=== PATIENT | female | born 1945 | race Caucasian/White ===

== ENCOUNTER 2019-11-15 10:21 | Outpatient (CLI) | payer MEDICARE, OTHER, SELFPAY ==
--- NOTE | ~2019-11-15 | DEXA_ITS ---
Bone Density Report Name: Catherine Blas Age: 74 Sex: Female Ethnicity: White Date of : 1945 Indication: postmenopausal; parental hip fracture; height loss; prior fracture; hysterectomy; Referring Provider: NAOMY BOSWELL Study: Bone densitometry was performed. Exam Date: November 15, 2019 Accession number: [id number] Bone Density: Region BMD T-score Z-score Classification AP Spine (L1, L2) 0.975 0.0 2.1 Normal Femoral Neck (Left) 0.753 -0.9 1.1 Normal Total Hip (Left) 0.937 0.0 1.6 Normal Total Hip Bilateral Avg 0.931 -0.1 1.6 Normal Femoral Neck (Right) 0.697 -1.4 0.5 Osteopenia Total Hip (Right) 0.925 -0.1 1.5 Normal World Health Organization criteria for BMD impression classify patients as: Normal (T-score at or above -1.0), Osteopenia (T-score between -1.0 and -2.5), or Osteoporosis (T-score at or below -2.5). 10-year Fracture Risk(1): Major Osteoporotic Fracture 24% Hip Fracture 6.4% Reported Risk Factors: [place] (), Neck BMD=0.697, BMI=24.9, previous fracture, parental fracture (1) FRAX(R) Version 3.08. Fracture probability calculated for an untreated patient. Fracture probability may be lower if the patient has received treatment. Previous Exams: Region Exam Age BMD T-score BMD Change BMD Change Date g/cm2 vs Baseline vs Previous AP Spine(L1, L2) 11/15/2019 74 0.975 0.0 -0.073(-6.9%)# -0.050(-4.8%)* 09/29/2017 72 1.025 0.4 -0.023(-2.2%)# -0.071(-6.5%)# 10/09/2009 64 1.096 1.1 0.048(4.6%)* 0.048(4.6%)* 09/29/2005 60 1.048 0.6 Total Hip(Left) 11/15/2019 74 0.937 0.0 -0.032(-3.3%)# -0.011(-1.2%) 09/29/2017 72 0.948 0.1 -0.021(-2.1%)# -0.056(-5.5%)# 10/09/2009 64 1.004 0.5 0.035(3.6%)* 0.035(3.6%)* 09/29/2005 60 0.969 0.2 Total Hip(Right) 11/15/2019 74 0.925 -0.1 -0.026(-2.8%)# 0.000(0.0%) 09/29/2017 72 0.925 -0.1 -0.026(-2.7%)# -0.027(-2.8%)# 10/09/2009 64 0.953 0.1 0.001(0.1%) 0.001(0.1%) 09/29/2005 60 0.951 0.1 *Denotes significance at 95% confidence level, LSC for AP Spine = 0.022 g/cm2, LSC for Total Hip = 0.027 g/cm2 Clinical Information Provided by Patient: Has had a low trauma fracture Parent has had a hip fracture Has used the following medications: HRT (i.e. estrogen/hormone therapy), Vitamin D, Calcium Has the following medical conditions: Hysterectomy Patient maximum height was 66.5 Menopause Age: 52 Drinks caffeinated beverages Onset of menses at age 16
== END 2019-11-15 10:22 | disposition home or self-care (01) ==
LOC: ANHIMG 10:26
PROVIDERS: PCP Family Medicine; Visit Provider Family Medicine
DX: Z78.0 Asymptomatic menopausal state (principal); M85.80 Other specified disorders of bone density and structure, unspecified site
CPT/HCPCS: 77080

== ENCOUNTER 2021-06-23 13:45 | Outpatient (CLI) | payer MEDICARE, SELFPAY ==
--- NOTE | ~2021-06-23 | US_ITS ---
EXAMINATION: US thyroid DATE: 06/23/2021 14:15 INDICATION: Nontoxic single thyroid nodule. TECHNIQUE: Multiple ultrasound images of the thyroid were obtained. COMPARISON: None. FINDINGS: The right thyroid lobe measures 4.5 x 2.1 x 1.9 cm. The left thyroid lobe measures 4.3 x 1.4 x 1.2 c m. The thyroid demonstrates diffusely heterogeneous echogenicity. No discrete nodule. Vascularity is increased. IMPRESSION: 1. Heterogeneous, hypervascular thyroid, consistent with chronic lymphocytic ([place]) thyroiditis. Reviewed, dictated and finalized at location A. 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 Heterogeneous, hypervascular thyroid, consistent with chronic lymphocytic ([place]) thyroiditis.
== END 2021-06-23 13:46 | disposition home or self-care (01) ==
LOC: ANHIMG 13:50
PROVIDERS: PCP Family Medicine; Visit Provider Physician Assistant Medical
DX: E04.1 Nontoxic single thyroid nodule (principal)
CPT/HCPCS: 76536

== ENCOUNTER 2022-02-05 14:08 | Outpatient (CLI) | payer MEDICARE, SELFPAY ==
--- NOTE | ~2022-02-05 | MM_ITS ---
EXAMINATION: MM screening meghan BI w gaston HISTORY: Screening mammogram TECHNIQUE: Craniocaudal and mediolateral oblique 3-D tomosynthesis images were obtained and synthetic 2-D images were generated. CAD analysis was submitted and interpreted. COMPARISON: 09/29/2017, 01/07/2016, 12/27/2013 bilateral screening mammogram examinations BREAST PARENCHYMAL COMPOSITION: There are scattered areas of fibroglandular density. FINDINGS: Right breast: There is chronic architectural distortion anteriorly in the outer mid right b reast. There is increased density in the anterior medial and anterior lateral right breast since prio r examinations. Diagnostic right mammogram and right breast ultrasound examination are recommended. Left breast: There is no evidence of suspicious mass, calcification, or architectural distortion to s uggest malignancy in the left breast. There has been no suspicious interval change. IMPRESSION: 1. New increased density and anterior medial and anterior lateral right breast 2. Diagnostic right mammogram and right breast ultrasound examination are recommended. BI-RADS Category 0: Incomplete: Needs additional imaging evaluation. Reviewed, dictated and finalized at location A. IMPRESSION: 1. New increased density and anterior medial and anterior lateral right breast 2. Diagnostic right mammogram and right breast ultrasound examination are recom mended. BI-RADS Category 0: Incomplete: Needs additional imaging evaluation.
== END 2022-02-05 14:09 | disposition home or self-care (01) ==
PROVIDERS: PCP Family Medicine; Visit Provider Family Medicine
DX: Z12.31 Encounter for screening mammogram for malignant neoplasm of breast (principal); R92.8 Other abnormal and inconclusive findings on diagnostic imaging of breast
CPT/HCPCS: 77063; 77067

== ENCOUNTER 2022-02-17 13:04 | Outpatient (CLI) | payer MEDICARE, SELFPAY ==
--- NOTE | ~2022-02-17 | MMUS_ITS ---
EXAMINATION: MM diagnostic meghan RT w gaston, US breast RT limited HISTORY: Follow-up right breast asymmetry TECHNIQUE: Additional 3-D tomosynthesis images of the right breast were performed and synthetic 2-D i mages were generated. CAD analysis was submitted and interpreted. High resolution Limited right breas t ultrasound was performed. COMPARISON: Comparison to multiple prior studies sequentially, with oldest reviewed study dated 08/2012. BREAST PARENCHYMAL COMPOSITION: Breast composed of scattered areas of fibroglandular density FINDINGS: MAMMOGRAPHIC FINDINGS: There is chronic architectural distortion lateral aspect of the right breast on CC view. There are sm all radiolucent masses in the lower inner quadrant of the right breast, largest measuringr 6 mm, like ly benign. There are benign right breast calcifications. ULTRASOUND: Limited right breast ultrasound: Near the nipple there is a minimally complicated cyst measuring 8 x 4 x 4 mm. At 10:00, 5 cm from the nipple there is a 5 x 5 x 4 mm cyst. No suspicious masses to sugges t malignancy. IMPRESSION: 1. Probable benign findings of the right breast. 2. Recommend 6 month follow-up diagnostic right mammogram and ultrasound BI-RADS category 3, probably benign findings. Reviewed, dictated and finalized at location A. IMPRESSION: 1. Probable benign findings of the right breast. 2. Recommend 6 month follow-up diagnostic right mammogram and ultrasound BI-RADS category 3, probably benign findings.
== END 2022-02-17 13:05 | disposition home or self-care (01) ==
PROVIDERS: Visit Provider Physician Assistant
DX: R92.8 Other abnormal and inconclusive findings on diagnostic imaging of breast (principal)
CPT/HCPCS: 76642; 77061; 77065; G0279

== ENCOUNTER → 2022-02-19 13:55 | Outpatient (CLI) | payer MEDICARE, SELFPAY ==
--- NOTE | ~2022-02-19 | DEXA_ITS ---
Bone Density Report Name: MADISON HAMMER Age: 76 Sex: Female Ethnicity: White Date of : 1945 Indication: postmenopausal; screening for osteoporosis; parental hip fracture; height loss; prior fracture; hysterectomy; Referring Provider: NAOMY BOSWELL Study: Bone densitometry was performed. Exam Date: February 19, 2022 Accession number: [id number] Bone Density: Region BMD T-score Z-score Classification AP Spine (L1, L2) 1.012 0.3 2.5 Normal Femoral Neck (Left) 0.716 -1.2 0.8 Osteopenia Total Hip (Left) 0.909 -0.3 1.5 Normal Femoral Neck (Right) 0.666 -1.6 0.4 Osteopenia Total Hip (Right) 0.905 -0.3 1.4 Normal Total Hip Mean 0.907 -0.3 1.5 Normal World Health Organization criteria for BMD impression classify patients as: Normal (T-score at or above -1.0), Osteopenia (T-score between -1.0 and -2.5), or Osteoporosis (T-score at or below -2.5). 10-year Fracture Risk: FRAX not reported because: Treated for osteoporosis Clinical Information Provided by Patient: Has had a low trauma fracture Parent has had a hip fracture Is being treated for osteoporosis Has used the following medications: HRT (i.e. estrogen/hormone therapy), Vitamin D, Calcium Has the following medical conditions: Hysterectomy Patient maximum height was 66.5 Menopause Age: 54 Drinks caffeinated beverages Onset of menses at age 16 Number of children 2 Impression: The patient has low bone mass, based on the Right Femoral Neck T-score. The patient has risk factors, including: parental hip fracture, previous fracture. Discussion: It is important to ask patients whether they are taking their medications and to encourage continued and appropriate compliance with their osteoporosis therapies to reduce fracture risk. It is also important to review their risk factors and encourage appropriate calcium and vitamin D intakes, exercise, fall prevention and other lifestyle measures. Follow-Up: Consider a repeat BMD and Vertebral Fracture Assessment (VFA) exam in 2 years or sooner if medically necessary, to reassess this patient's status. Reported by: JENNA on 02/19/2022 2:20:00 PM. Reviewed, dictated and finalized at location AWhit GARCIA
== END ==
PROVIDERS: PCP Family Medicine; Visit Provider Family Medicine
DX: Z78.0 Asymptomatic menopausal state (principal); M85.851 Other specified disorders of bone density and structure, right thigh; M85.852 Other specified disorders of bone density and structure, left thigh
CPT/HCPCS: 77080

== ENCOUNTER 2022-08-20 13:24 | Outpatient (CLI) | payer MEDICARE, SELFPAY ==
--- NOTE | ~2022-08-20 | MMUS_ITS ---
EXAMINATION: MM diagnostic meghan RT w gaston, US breast RT complete HISTORY: Six-month follow-up of probable right breast benign findings TECHNIQUE: Full field ML and spot ML, MLO and CC 3-D tomosynthesis images of the right breast were pe rformed and synthetic 2-D images were generated. CAD analysis was submitted and interpreted. High res olution complete right breast ultrasound examination including all 4 quadrants and subareolar area wa s performed. COMPARISON: 02/17/2022 diagnostic right mammogram and limited right breast ultrasound 02/05/2022 bilateral screening mammogram 09/29/2017 bilateral screening mammogram BREAST PARENCHYMAL COMPOSITION: There are scattered areas of fibroglandular density. FINDINGS: MAMMOGRAPHIC FINDINGS: There is stable asymmetry and architectural distortion of the right breast since 02/05/2022. History o f prior open right breast biopsy in 2002. Scattered punctate benign right microcalcifications. No interval suspicious mass or new architectural distortion, Nadreina constipation, skin thickening or retraction since 02/05/2022 detected. ULTRASOUND: Right breast 3:00 near nipple: 3.4 x 6.7 x 5 mm sonolucency without internal vascularity or posterior shadowing, with some posterior enhancement, likely benign cystic. Right breast posterior to the nipple: Approximately 5.4 x 8.6 x 6.7 mm hypoechoic area without international affairs vice president al vascularity or posterior features considering its retroareolar position 10:00 5 cm from nipple: 4 x 6.5 mm sonolucency with through transmission posterior enhancement consis tent with cyst IMPRESSION: 1. Probable benign findings 2. Another six-month diagnostic right mammogram and right breast ultrasound follow-up are recommended . BI-RADS category 3, probably benign findings. Reviewed, dictated and finalized at location A. IMPRESSION: 1. Probable benign findings 2. Another six-month diagnostic right mammogram and right breast ultrasound fol low-up are recommended. BI-RADS category 3, probably benign findings.
== END 2022-08-20 13:25 | disposition home or self-care (01) ==
PROVIDERS: PCP Family Medicine; Visit Provider Physician Assistant
DX: R92.8 Other abnormal and inconclusive findings on diagnostic imaging of breast (principal)
CPT/HCPCS: 76641; 77061; 77065; G0279

== ENCOUNTER 2023-03-02 12:16 | Outpatient (CLI) | payer MEDICARE, SELFPAY ==
--- NOTE | ~2023-03-02 | MMUS_ITS ---
EXAMINATION: MM diagnostic meghan BI w gaston, US breast BI complete HISTORY: Six-month follow-up of probably benign findings reported on August 20, 2022 diagnostic right mammogram and complete right breast ultrasound examination TECHNIQUE: Bilateral ML, MLO and CC full field and right spot ML and CC 3-D tomosynthesis images of w ere performed and synthetic 2-D images were generated. CAD analysis was submitted and interpreted. Hi gh resolution complete bilateral breast ultrasound examination including all 4 quadrants and subareol ar areas was performed. COMPARISON: August 20, 2022 diagnostic right mammogram and limited right breast ultrasound 02/17/2022 diagnostic right mammogram and limited right breast ultrasound 02/05/2022 bilateral screening mammogram BREAST PARENCHYMAL COMPOSITION: The breasts are heterogeneously dense, which may obscure small masses . FINDINGS: MAMMOGRAPHIC FINDINGS: Again noted is architectural distortion in the outer right breast; history of prior open right breast biopsy in 2039. There is somewhat nodular appearing heterogeneously dense fibroglandular stroma of both breasts, whic h may obscure small masses. Bilateral complete breast ultrasound examination was performed. No malignant calcification, skin thickening or retraction of either breast is detected. ULTRASOUND: Multiple scattered bilateral cysts and fluid-filled ducts are noted. No suspicious solid mass lesion or shadowing of either breast is detected. IMPRESSION: 1. No mammographic evidence of malignancy 2. Routine mammographic screening is recommended BI-RADS Category 2: Benign finding(s). Reviewed, dictated and finalized at location C. IMPRESSION: 1. No mammographic evidence of malignancy 2. Routine mammographic screening is recommended BI-RADS Category 2: Benign finding(s).
== END 2023-03-02 12:17 | disposition home or self-care (01) ==
PROVIDERS: PCP Family Medicine; Visit Provider Family Medicine
DX: R92.8 Other abnormal and inconclusive findings on diagnostic imaging of breast (principal); N60.01 Solitary cyst of right breast
CPT/HCPCS: 76641; 77062; 77066; G0279

== ENCOUNTER 2024-03-06 09:56 | Outpatient (CLI) | payer MEDICARE, SELFPAY ==
--- NOTE | ~2024-03-06 | MM_ITS ---
EXAMINATION: MM screening meghan BI w gaston HISTORY: Screening mammogram, family history of breast cancer in her daughter. TECHNIQUE: Craniocaudal and mediolateral oblique 3-D tomosynthesis images were obtained and synthetic 2-D images were generated. CAD analysis was submitted and interpreted. COMPARISON: 03/02/2023, 08/20/2022, 02/05/2022 BREAST PARENCHYMAL COMPOSITION:Not Dense. There are scattered areas of fibroglandular density. FINDINGS: Small bilateral low-density masses are similar to prior exam, most compatible with multiple cysts. No suspicious mass, calcification, or architectural distortion are identified in either breas t to suggest malignancy. There has been no suspicious interval change. IMPRESSION: No mammographic evidence of malignancy. Recommend routine screening mammography in one year. BI-RADS Category 2: Benign finding(s). Reviewed, dictated and finalized at [facility].
== END 2024-03-06 09:57 | disposition home or self-care (01) ==
LOC: ANHIMG 10:00
PROVIDERS: PCP Family Medicine; Visit Provider Family Medicine
DX: Z12.31 Encounter for screening mammogram for malignant neoplasm of breast (principal)
CPT/HCPCS: 77063; 77067

== ENCOUNTER 2024-05-16 09:28 | Emergency (ER) | payer MEDICARE, SELFPAY ==
[2024-05-16 09:37] VITALS: BP 149/86; PULSE 77; RESP 16; TEMP 36.8; O2SAT 99
--- NOTE | 2024-05-16 09:44 | ED.EYEPROB ---
HPI - Eye Problem General Chief complaint: Eye Problems Stated complaint: L EYE STY Time Seen by Provider: 05/16/24 10:20 Source: patient, RN notes reviewed and old records reviewed Mode of arrival: ambulatory Limitations: no limitations History of Present Illness HPI Narrative: 78-year-old female presents to the [facility] with a stye to the left upper eyelid for the last 9 days. Has been using [id number] eye drops, warm compresses. Onset (ago): day(s) (9) Related Data Home Medications ?Medication ?Instructions ?Recorded ?Confirmed ?Last Taken ?Type calcium 600 mg-D3 800 unit-mag11 1 tablet PO BID 04/27/19 03/28/24 Unknown History 50 ns-hxzg-egscaz-leyla-s.borat tablet (Caltrate 600-D Plus Minerals) cetirizine 10 mg tablet 5 mg PO DAILY 04/27/19 03/28/24 Unknown History cholecalciferol (vitamin D3) 25 1,000 unit PO DAILY 04/27/19 03/28/24 Unknown History mcg (1,000 unit) capsule fluticasone propionate 50 2 spray intranasal DAILY 04/27/19 03/28/24 Unknown History mcg/actuation nasal spray,suspension latanoprost 0.005 % eye drops 1 drp EACH EYE DAILY 09/26/21 03/28/24 Unknown History polyethylene glycol 3350 17 17 g PO DAILY 09/16/23 03/28/24 Unknown History gram/dose oral powder (Miralax) mecobalamin (vitamin B12) 1,000 1,000 mcg PO DAILY 09/22/23 03/28/24 Unknown History mcg chewable tablet (B12 Active) multivitamin with minerals-folic 1 tablet PO DAILY 09/22/23 03/28/24 Unknown History acid 120 mcg chewable tablet (Centrum Adult 50 Plus Fresh-Fruity) nystatin 100,000 unit/gram topical 1 applic topical DAILY 09/22/23 03/28/24 Unknown History cream omega-3 fatty acids 1,250 mg 1,250 mg PO BID 09/22/23 03/28/24 Unknown History capsule Allergies Allergy/AdvReac Type Severity Reaction Status Date / Time irbesartan Allergy Unknown Unknown Verified 05/16/24 09:36 lisinopril Allergy Unknown Unknown Verified 05/16/24 09:36 lovastatin Allergy Unknown Unknown Verified 05/16/24 09:36 Review of Systems Review of Systems: All systems reviewed & are unremarkable except as noted in HPI and below Constitutional: Constitutional: Reports no additional constitutional complaints Eyes: Eyes: Reports as per HPI ENT: Reports system reviewed and no additional complaints, except as documented Cardiovascular: Cardiovascular: Reports no additional cardiovascular complaints, Denies chest pain and Denies dyspnea Respiratory: Respiratory: Reports no additional respiratory complaints, Denies chest congestion, Denies cough and Denies dyspnea Musculoskeletal: Musculoskeletal: Reports no additional musculoskeletal complaints Integumentary/Breasts: Skin/Breast: Reports system reviewed and no additional complaints, except as docu PMFSH Past Medical History Medical History Hearing aid worn Osteopenia after menopause Hormone replacement therapy (HRT) Migraine Family History Family History Sibling Family history of thyroid disease Hypertension Father Hypertension Family history of cardiovascular disease Mother Family history of Parkinson's disease Family history of dementia Other Diabetes mellitus Family history of anemia Social History Social History Social History: Caffeine- coffee Smoking status: Never smoker Second hand tobacco smoke exposure: Yes Alcohol intake: current Alcohol use details: occasionally Substance use: never Substance use type: does not use Do You Feel Safe in your Home?: Yes Lack of Transportation: No Lack of Food: Never True Current Housing: I Have Housing Concerned About Future Housing: No Difficulty Paying Gas/Electric Bills: No Difficulty Paying for Meds: No Currently Unemployed: No Education: Bachelor's Degree Difficulty w/ Childcare or Family Care: No Comments At the time of my signature, I reviewed and agree with the nursing past medical, surgical, social, and family history. There is no relevant family history pertinent to the patient complaint. Exam Const: General: cooperative, healthy appearing, comfortable, no acute distress, well developed, alert and well nourished Nutritional Appearance: well nourished Orientation/consciousness: patient oriented x3 Limitations: no limitations HENMT: Head: normal to inspection Ears: hearing grossly normal bilaterally, external ears normal, TM's normal bilaterally, EAC's normal, mastoids normal and no periauricular adenopathy Mouth: Yes Normal oral and palatal mucosa present, Yes lip normal, Yes tongue normal and Yes moist mucous membranes Throat: posterior oropharynx normal, uvula midline and no uvular edema Eyes: General: appearance normal, both eyes and all related structures Visual Daley: normal visual daley by confrontation Alignment and Position: alignment normal Eyelids: eyelid abnormality left upper eyelid inflamed cyst external lid Conjunctivae: conjunctivae normal Sclera: sclerae normal Neck: Neck: normal visual inspection, full ROM, no lymphadenopathy and no meningeal signs Chest: Chest palpation & inspection: normal inspection of the chest Resp: Effort & Inspection: normal respiratory effort and able to speak in complete sentences Auscultation: clear to auscultation bilaterally, no crackles, no rales, no rhonchi and no wheezes Cardio: Rate: regular rate Skin: General skin exam: normal color and no rashes or lesions noted Neuro: General: patient oriented x3, gait normal, moves all extremities and no meningeal signs Cognition (Neuro): normal cognition Speech: normal speech Gait exam (Neuro): Normal gait present Extrem: General: normal to inspection, full ROM, capillary refill normal and normal gait Psych: Appearance: grossly normal and well kempt Mental Status: mental status grossly normal Speech and movement: Normal speech and movement present and Clear speech present Affect: normal affect Attitude: cooperative Course Course Level of Care: Express Care Visit Vital Signs Vital signs: Vital Signs Temperature 98.2 F 05/16/24 09:37 Pulse Rate 77 05/16/24 09:37 Respiratory Rate 16 05/16/24 09:37 Blood Pressure 149/86 H 05/16/24 09:37 Pulse Oximetry 99 05/16/24 09:37 Temperature 98.2 F 05/16/24 09:37 Pulse Rate 77 05/16/24 09:37 Respiratory Rate 16 05/16/24 09:37 Blood Pressure 149/86 H 05/16/24 09:37 Pulse Oximetry 99 05/16/24 09:37 Reviewed MDM - Eye Problem MDM Narrative Medical decision making narrative: Patient sitting comfortably in exam room. Nontoxic, vitals stable. Patient in no acute distress. Patient presents with [place] large stye to the left upper eyelid. No surrounding erythema, no surrounding swelling discussed woka-wvl-vpekfyq treatments, will give erythromycin, stressed the importance of following up with eye doctor which she verbalized understanding. Discharge instructions reviewed with patient, as well as provided in writing per nursing staff. The instructions also include specific and strict return/GO TO THE ER as well as f/u information. All questions have been answered, and the patient deny any further questions with discharge and discharge plan. Some parts of this dictation were generated by voice recognition software and may contain typographical and/or grammatical inaccuracies. Differential Diagnosis Differential diagnosis: Likely conjunctivitis, periorbital cellulitis and other (Stye) Critical Care Time Critical Care Time Critical Care Time: No Discharge Plan Discharge Clinical Impression: Hordeolum of left upper eyelid Qualifiers: Hordeolum type: externum Qualified Code(s): H00.014 - Hordeolum externum left upper eyelid Patient Disposition: Home, Self-Care Condition: Stable Instructions: Antibiotic Form, Marylou (ED) Additional Instructions: Follow-up with your eye doctor, call today for an appointment. Apply warm compresses every 3-4 hours for 10 minutes. Use the erythromycin ointment 3 times a day do not wear makeup follow-up with your primary care provider. Today your blood pressure was 149/86 for new or worsening symptoms go directly to the emergency room Patient Language: Vietnamese Prescriptions: New erythromycin 5 mg/gram (0.5 %) ointment 0.5 inch LEFT EYE TID Qty: 3.5 0RF No Action latanoprost 0.005 % drops 1 drp EACH EYE DAILY multivit with min-folic acid [Centrum Adult 50 Fresh-Fruity] 120 mcg tablet,chewable 1 tablet PO DAILY mecobalamin (vitamin B12) [B12 Active] 1,000 mcg tablet,chewable 1,000 mcg PO DAILY omega-3 fatty acids 1,250 mg capsule 1,250 mg PO BID nystatin 100,000 unit/gram cream 1 applic topical DAILY fluticasone propionate 50 mcg/actuation spray,suspension 2 spray NASAL DAILY cetirizine 10 mg tablet 5 mg PO DAILY cholecalciferol (vitamin D3) 25 mcg (1,000 unit) capsule 1,000 unit PO DAILY Caltrate 600-D Plus Minerals 600 mg calcium- 800 unit-50 mg tablet 1 tablet PO BID Seed Probiotic 1 tablet BYMOUTH DAILY Qty: 30 0RF polyethylene glycol 3350 [Miralax] 17 gram/dose powder 17 g PO DAILY simvastatin 20 mg tablet See Rx Instructions .ROUTE .COMPLEX Qty: 90 1RF Dose Instruction: TAKE 1 TABLET BY MOUTH DAILY Rx Instructions: TAKE 1 TABLET BY MOUTH DAILY sertraline [Zoloft] 50 mg tablet 50 mg PO DAILY Qty: 90 1RF meloxicam 15 mg tablet 15 mg PO DAILY Qty: 90 0RF estradiol [Estrace] 0.5 mg tablet 0.5 mg PO DAILY Qty: 90 3RF Follow-up/Referrals: Luciano Enriquez MD [Primary Care Provider] - 1 Week ([facility] care follow up blood pressure check) Time of Disposition: 10:34
== END 2024-05-16 10:38 | disposition home or self-care (01) ==
PROVIDERS: Emergency Provider Nurse Practitioner; PCP Family Medicine
DX: H00.014 Hordeolum externum left upper eyelid (principal); M85.80 Other specified disorders of bone density and structure, unspecified site
CPT/HCPCS: 99213; G0463

== ENCOUNTER 2024-07-03 07:04 | Day surgery (SDC) | payer MEDICARE, SELFPAY ==
[2024-03-30 08:53] VITALS: BMI 27.3
--- NOTE | 2024-07-03 06:55 | P.PNAN_ITS ---
Anes - Initial Pre Proc Eval Procedure: Operation Date: 07/03/24 09:00 Proposed Procedures p Diagnostic Colonoscopy - Manan Braden MD Date/Time: 07/03/24 06:55 Surgeon: Manan Braden MD Pre Op Diagnosis: Family History of Polyps Patient Data Age: 78 Gender: F Height: 1.65 m Weight: 73 kg Allergies Allergy/AdvReac Type Severity Reaction Status Date / Time irbesartan Allergy Unknown Unknown Verified 07/03/24 07:49 lisinopril AdvReac Unknown Cough Verified 07/03/24 07:49 lovastatin AdvReac Unknown Muscle Pain Verified 07/03/24 07:49 Home Medications ?Medication ?Instructions ?Recorded ?Confirmed ?Type calcium 600 mg-D3 800 unit-mag11 1 tablet PO HS 04/27/19 07/03/24 History 50 qq-jzqh-ijeign-leyla-s.borat tablet (Caltrate 600-D Plus Minerals) cetirizine 10 mg tablet 5 mg PO DAILY 04/27/19 07/03/24 History cholecalciferol (vitamin D3) 25 1,000 unit PO DAILY 04/27/19 07/03/24 History mcg (1,000 unit) capsule fluticasone propionate 50 2 spray intranasal DAILY 04/27/19 07/03/24 History mcg/actuation nasal spray,suspension latanoprost 0.005 % eye drops 1 drp EACH EYE DAILY 09/26/21 07/03/24 History Seed Probiotic 1 tablet BYMOUTH DAILY #30 tabs 03/23/23 07/03/24 Rx polyethylene glycol 3350 17 17 g PO DAILY 09/16/23 07/03/24 History gram/dose oral powder (Miralax) mecobalamin (vitamin B12) 1,000 1,000 mcg PO DAILY 09/22/23 07/03/24 History mcg chewable tablet (B12 Active) multivitamin with minerals-folic 1 tablet PO DAILY 09/22/23 07/03/24 History acid 120 mcg chewable tablet (Centrum Adult 50 Plus Fresh-Fruity) omega-3 fatty acids 1,250 mg 1,250 mg PO DAILY 09/22/23 06/13/24 History capsule simvastatin 20 mg tablet See Rx Instructions .Route 01/24/24 07/03/24 Rx .COMPLEX #90 tabs sertraline 50 mg tablet (Zoloft) 50 mg PO DAILY #90 tabs 03/23/24 07/03/24 Rx meloxicam 15 mg tablet 15 mg PO DAILY #90 tabs 04/21/24 07/03/24 Rx estradiol 0.5 mg tablet (Estrace) 0.5 mg PO DAILY #90 tabs 05/16/24 07/03/24 Rx apple cider vinegar 500 mg tablet 500 mg PO BID 06/13/24 07/03/24 History magnesium glycinate 100 mg (as 480 mg PO DAILY 06/13/24 07/03/24 History glycinate) tablet (Mag Glycinate) Patient hx anesthesia problems: none Family hx anesthesia problems: none Results Review: All pre-operative results and documents have been reviewed as part of the pre- operative evaluation. [facility] Past Medical History Medical History (Updated 07/03/24 @ 06:55 by Shahzad Guzman DO) Essential (primary) hypertension Pure hypercholesterolemia, unspecified Hearing aid worn Osteopenia after menopause Hormone replacement therapy (HRT) Migraine Family History Family History Sibling Family history of thyroid disease Hypertension Father Hypertension Family history of cardiovascular disease Mother Family history of Parkinson's disease Family history of dementia Other Diabetes mellitus Family history of anemia Social History Social History Social History: Caffeine- coffee Smoking status: Never smoker Second hand tobacco smoke exposure: Yes Alcohol intake: current Alcohol use details: rarely/monthly Substance use: never Substance use type: does not use Do You Feel Safe in your Home?: Yes Lack of Transportation: No Lack of Food: Never True Current Housing: I Have Housing Concerned About Future Housing: No Difficulty Paying Gas/Electric Bills: No Difficulty Paying for Meds: No Currently Unemployed: No Education: Bachelor's Degree Difficulty w/ Childcare or Family Care: No Living arrangements: with family Spiritual care concerns: No Anes - Eval Final PreProcedure Day of Procedure 07/03/24 06:55 Patient weight: overweight Heart: regular rate and rhythm Lungs: clear to auscultation Airway: Mallampati scale class II Neurological: alert and oriented Last oral intake: >/= 8 hours ASA classification: II Emergent: no Anesthetic plan: proceed Anesthesia type and monitoring: general GIVS and standard monitoring Results Review: All pre-operative results and documents have been reviewed as part of the pre- operative evaluation. Informed Consent: The patient's anesthetic plan and its attendant risks and benefits were discussed with the patient/family/POA. Questions were solicited and answers provided to the satisfaction of the patient/family/POA.
--- OUTSIDE RECORDS SUMMARY | 2024-07-03 07:30 | XMS_ITS | Encounter Summary ---
Author Organization [employer] Address 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 [employer] Gender Identity Not on file Sexual Orientation Not on file documented as of this encounter Plan of Treatment Not on file documented as of this encounter Procedures Procedure Name Priority Date/Time Associated Diagnosis Comments XR ANKLE 2 VW RIGHT Stat 12/31/2008 1 0:20 AM CDT XR FLUORO LESS THAN 1 HOUR Routine 12/31/2008 10:05 AM CDT TYPE AND SCREEN Routine 12/31/2008 7:24 AM CDT CBC WITH DIFFERENTIAL Stat 12/30/2008 9:45 PM CDT PROTIME-INR Stat 12/30/2008 9:45 PM CDT BASIC METABOLIC PANEL Stat 12/30/2008 9:45 PM CDT XR ANKLE 3+ VW RIGHT Stat 12/30/2008 7:40 PM CDT XR CHEST PA OR AP 1 VW Routine 6:50 PM CDT PT AND APTT Stat 12/30/2008 6:47 PM CDT CBC WITH DIFFERENTIAL Stat 12/30/2008 6:47 PM CDT COMPREHENSIVE METABOLIC PANEL Stat 12/30/2008 6:[address] ANKLE WO CONTRAST RIGHT Stat 12/30/2008 6:46 PM CDT documented in this encounter Results * XR ANKLE 2 VW RIGHT (12/31/2008 10:20 AM CDT) Anatomical Region Laterality Modality Ankle / Foot Other 12/31/2008 10:2 0 AM CDT Narrative 12/31/2008 2:44 PM CDT [facility] [address], [place] [address] Admit Date: 12/30/2008 CATHERINE HAMMER Sex: F Admit Prov: EZEKIEL STOVER Date: 1945 Primary Care Prov: NAOMY ENRIQUEZ CMRN: [id number] Room: [address] [place] [address] SSN: [id number] IMAGING SERVICES Ordering Prov: N/A Accession Number: [id number] Interpretation RIGHT ANKLE AP AND LATERAL, 12/31/08 AT 1020 HOURS INDICATION: Postoperative, ankle fracture. FINDINGS: Since 12/30/2008, a new traction pin has been placed through the calcaneus without gross acute complication. Fractures of the distal tibia and fibula have not significantly changed. An overlying splint obscures detail. IMPRESSION: New calcaneal traction pin placement without evidence of gross complication. . Dictated by: GERARDO NAGY 12/31/2008 11:05 Electronically signed by: GERARDO NAGY 12/31/2008 14:43 Transcribed: 12/31/2008 13:35 Procedure Note Gerardo Nagy MD - 12/31/2008 [facility] [address] [place], [place] [address] Admit Date: 12/30/2008 CATHERINE HAMMER Sex: F Admit Prov: EZEKIEL STOVER Date: 1945 Primary Care Prov: NAOMY ENRIQUEZ CMRN: [id number] Room: [address] [place] [address] SSN: [id number] IMAGING SERVICES Ordering Prov: N/A Interpretation RIGHT ANKLE AP AND LATERAL, 12/31/08 AT 1020 HOURS INDICATION: Postoperative, ankle fracture. FINDINGS: Since 12/30/2008, a new traction pin has been placed throughthe calcaneus without gross acute complication. Fractures of the distaltibia and fibula have not significantly changed. An overlying splintobscures detail. IMPRESSION: New calcaneal traction pin placement without evidence of gross complication. . Dictated by: GERARDO NAGY 12/31/2008 11:05 Electronically signed by: GERARDO NAGY 12/31/2008 14:43 Transcribed: 12/31/2008 13:35 us Raquel Dunn MD DIAGNOSTIC IMAGING ORDERABLES Final Result * XR FLUORO LESS THAN 1 HOUR (12/31/2008 10:05 AM CDT) Anatomical Region Laterality Modality Other 12/31/2008 10:0 5 AM CDT Narrative 01/05/2009 9:58 PM CDT [facility] [address] [place], [place] [address] Admit Date: 12/30/2008 CATHERINE AHMMER Sex: F Admit Prov: EZEKIEL STOVER Date: 1945 Primary Care Prov: NAOMY ENIRQUEZ CMRN: [id number] Room: [address] [place] [address] SSN: [id number] IMAGING SERVICES Ordering Prov: EZEKIEL STOVER Accession Number: [id number] Interpretation Fluoroscopic guidance was used by the surgeon to assist with performance of this intra-operative procedure. Please refer to surgeon s operative report for specific details. Dictated by: RADIOLOGY, DEPARTMENT O Electronically signed by: RADIOLOGY, DEPARTMENT 01/05/2009 20:44 Transcribed: 01/05/2009 19:21 AMK Procedure Note Radiology, Radiologist - 01/05/2009 [facility] [address] [place], [place] [address] Admit Date: 12/30/2008 CATHERINE HAMMER Sex: F Admit Prov: JOLANTAEZEKIEL Tasha Date: 1945 Primary Care Prov: NAOMY ENRIQUEZ CMRN: [id number] Room: [address] [place] [address] SSN: [id number] IMAGING SERVICES Ordering Prov: JOLANTA EZEKIEL Cordova Interpretation Fluoroscopic guidance was used by the surgeon to assist withperformance of this intra-operative procedure. Please refer to surgeon s operativereport for specific details. Dictated by: RADIOLOGY, DEPARTMENT O Electronically signed by: RADIOLOGY, DEPARTMENT 01/05/2009 20:44 Transcribed: 01/05/2009 19:21 AMK Ezekiel Stover MD DIAGNOSTIC IMAGING ORDERABLES Fi nal Result * TYPE AND SCREEN (12/31/2008 7:24 AM CDT) Pathologist [facility] HISTORY CHECK No Historical ABO/Rh [facility] ABO/RH TYPE O Positive [facility] SPECIMEN LIFE 3 days from drawdate [facility] ANTIBODY SCREEN Negative [facility] Blood specimen (specimen) 12/31/2008 7:24 AM CDT Ezekiel Stover MD BLOOD BANK ORDERABLES Edited INTERFACE SYSTEM Refer to clinic/hospital department [facility] CLIA# [id number] [address] [place] [address] * (ABNORMAL) CBC WITH DIFFERENTIAL (12/30/2008 9:45 PM CDT) MCV 90.1 82.0 - 99.0 fL [facility] PLATELETS 279 140 - 350 K/uL [facility] HEMOGLOBIN 14.4 11.8 - 14.8 g/dL [facility] RDW 12.8 11.5 - 14.5 % [facility] WBC 13.3(H) 4.0 - 9.8 K/uL [facility] MCH 31.0 27.2 - 32.6 pg [facility] MPV 9.9 9.3 - 12.4 fL [facility] HEMATOCRIT 41.9 35.5 - 44.0 % [facility] RDW-STDEV 41.6 37.1 - 48.7 fL [facility] RBC 4.65 3.90 - 4.90 M/uL [facility] MCHC 34.4 31.5 - 35.5 % [facility] EOSINOPHILS 0 0 - 7 % [facility] EOSINOPHIL ABSOLUTE 0.03 0.00 - 0.70 K/uL [facility] LYMPHOCYTES 12(L) 16 - 45 % [facility] LYMPHOCYTE ABSOLUTE 1.57 0.70 - 4.50 K/uL [facility] BASOPHILS 0 0 - 2 % [facility] BASOPHILS ABSOLUTE 0.03 0.00 - 0.20 K/uL [facility] MONOCYTES 5 3 - 13 % [facility] MONOCYTE ABSOLUTE 0.67 0.10 - 1.30 K/uL [facility] NEUTROPHILS 83(H) 45 - 70 % [facility] NEUTROPHIL ABSOLUTE 10.97(H) 1.90 - 7.00 K/uL [facility] Blood specimen (specimen) 12/30/2008 9:45 PM CDT 12/30/2008 9:53 PM CDT Ezekiel Stover MD HEMATOLOGY ORDERABLES Edited Performing Organization Address City/[facility] Co de Phone Number [facility] CLIA# [id number] [address] [place] [address] * PROTIME-INR (12/30/2008 9:45 PM CDT) INR 1.0 0.9 - 1.1 [facility] Comment: INR Therapeutic Range: Adult: 2.0 - 3.0 for pulmonary embolism or prophylaxis against venous thrombosis or systemic embolization. 2.0 - 3.0 for patients with tissue heart valves. 2.5 - 3.5 for patients with mechanical heart valves or post CT. Pediatric (12 years and under): 1.5 - 3.0 Although the target range in children is not well established, INR values of 1.5 - 3.0 are recommended for most patients. Higher values have been used in children with prosthetic cardiac valves and hereditary clotting disorders. (<3 days) therapeutic ranges have not been established. PROTIME 13.9 12.7 - 15.1 Seconds [facility] Blood specimen (specimen) 12/30/2008 9:45 PM CDT 12/30/2008 9:53 PM CDT Ezekiel Stover MD HEMATOLOGY ORDERABLES Final Resu lt Performing Organization Address City/[facility]/ZIP Co de Phone Number [facility] CLIA# [id number] [address] [place] [address] * (ABNORMAL) BASIC METABOLIC PANEL (12/30/2008 9:45 PM CDT) BUN 12 6 - 20 mg/dL [facility] CHLORIDE 99 96 - 108 mmol/L [facility] GLUCOSE 109(H) 65 - 99 mg/dL [facility] SODIUM 136 135 - 145 mmol/L [facility] CALCIUM 8.8 8.6 - 10.2 mg/dL [facility] CO2 26 22 - 30 mmol/L [facility] CREATININE 0.77 0.51 - 0.95 mg/dL [facility] POTASSIUM 3.6 3.5 - 4.9 mmol/L [facility] GFR, >60 >=60 mL/min/1. 7 sq meter [facility] GFR >60 >=60 mL/min/1. 7 sq meter [facility] Comment: Modification of Diet in Renal Disease (MDRD) study formula. Estimated GFR rate interpretative information for both Americans and non- Americans is available on the [facility] Intranet at: [email or web address] Select: Lab Policies and Procedures Select: Reference Ranges - GFR Blood specimen (specimen) 12/30/2008 9:45 PM CDT 12/30/2008 9:53 PM CDT us Ezekiel Stover MD CHEMISTRY ORDERABLES Edited [facility] CLIA# [id number] [address] [place] [address] * XR ANKLE 3+ VW RIGHT (12/30/2008 7:40 PM CDT) Anatomical Region Laterality Modality Ankle / Foot Other 12/30/2008 7:40 PM CDT Narrative 12/30/2008 8:19 PM CDT [facility] [address] [place], [place] [address] Admit Date: 12/30/2008 CATHERINE HAMMER Sex: F Admit Prov: EZEKIEL STOVER Date: 1945 Primary Care Prov: NAOMY ENRIQUEZ CMRN: [id number] Room: [facility] SSN: [id number] IMAGING SERVICES Ordering Prov: N/A Accession Number: [id number] Interpretation EXAM: RIGHT ANKLE 3 VIEWS, 12/30/2008 INDICATION: Postreduction. FINDINGS: Alignment is improved since the previous CT of the same day. However, there is still posterior displacement of the distal fibular fragment of about 80% and posterior displacement of the posterior corner fracture fragment of the distal tibia. There is also persistent lateral displacement of the distal fibula fracture. . Dictated by: DEAN KEVIN 12/30/2008 19:55 Electronically signed by: DEAN KEVIN 12/30/2008 20:18 Transcribed: 12/30/2008 20:16 SJ Procedure Note Dean Kevin 12/30/[address] [address] Admit Date: 12/30/2008 HAMMER CATHERINE M Sex: F Admit Prov: EZEKIEL STOVER Date: 1945 Primary Care Prov: NAOMY ENRIQUEZ CMRN: [id number] [facility] SS[facility]: [id number] IMAGING SERVICES Ordering Prov: N/A Interpretation EXAM: RIGHT ANKLE 3 VIEWS, 12/30/2008 INDICATION: Postreduction. FINDINGS: Alignment is improved since the previous CT of the same day. However,there is still posterior displacement of the distal fibular fragment ofabout 80% and posterior displacement of the posterior corner fracture fragmentof the distal tibia. There is also persistent lateral displacement of thedistal fibula fracture. . Dictated by: DEAN KEVIN 12/30/2008 19:55 Electronically signed by: DEAN KEVIN 12/30/2008 20:18 Transcribed: 12/30/2008 20:16 SJ us Meagan Oliveros PA DIAGNOSTIC IMAGING ORDERABLES F inal Result * XR CHEST PA OR AP (12/30/2008 6:50 PM CDT) Anatomical Region Laterality Modality Chest Other 12/30/2008 6:50 PM CDT Narrative 12/30/2008 7:33 PM CDT [address] [place], [place] [address] Admit Date: 12/30/2008 CATHERINE HAMMER Sex: F Admit Prov: ER, AUTHORIZED P Date: 1945 Primary Care Prov: NAOMY ENRIQUEZ CMRN: [id number] Room: [facility] SSN: [address] [place] [address] IMAGING SERVICES Ordering Prov: N/A Accession Number: [id number] Interpretation EXAM: PORTABLE AP CHEST, 12/30/2008 INDICATION: Shortness of breath. Trauma. FINDINGS: There is no consolidating infiltrate, pneumothorax or pleural fluid. The heart and mediastinum are within normal limits for portable AP technique. IMPRESSION: Normal portable AP chest. . Dictated by: DEAN KEVIN 12/30/2008 19:16 Electronically signed by: DEAN KEVIN 12/30/2008 19:32 Transcribed: 12/30/2008 19:31 SJ Procedure Note Daen Kevin 12/30/2008 [place] [address] [place], [place] [address] Admit Date: 12/30/2008 CATHERINE HAMMER Sex: F Admit Prov: ER, AUTHORIZED P Date: 1945 Primary Care Prov: NAOMY ENRIQUEZ CMRN: [id number] Room: [facility] SSN: [address] [place] [address] IMAGING SERVICES Ordering Prov: N/A Interpretation EXAM: PORTABLE AP CHEST, 12/30/2008 INDICATION: Shortness of breath. Trauma. FINDINGS: There is no consolidating infiltrate, pneumothorax or pleural fluid.The heart and mediastinum are within normal limits for portable APtechnique. IMPRESSION: Normal portable AP chest. . Dictated by: DEAN KEVIN 12/30/2008 19:16 Electronically signed by: DEAN KEVIN 12/30/2008 19:32 Transcribed: 12/30/2008 19:31 SJ us Xiomara Fitch MD DIAGNOSTIC IMAGING ORDERABLES Final Result * PT AND APTT (12/30/2008 6:47 PM CDT) INR 1.1 0.9 - 1.1 [facility] Comment: INR Therapeutic Range: Adult: 2.0 - 3.0 for pulmonary embolism or prophylaxis against venous thrombosis or systemic embolization. 2.0 - 3.0 for patients with tissue heart valves. 2.5 - 3.5 for patients with mechanical heart valves or post CT. Pediatric (12 years and under): 1.5 - 3.0 Although the target range in children is not well established, INR values of 1.5 - 3.0 are recommended for most patients. Higher values have been used in children with prosthetic cardiac valves and hereditary clotting disorders. [place] (<3 days) therapeutic ranges have not been established. PROTIME 14.3 12.7 - 15.1 Seconds [facility] PTT 36.3 24.4 - 36.4 Seconds [facility] Comment: PTT Therapeutic Range: Heparin Level PTT (seconds) <0.10 units/mL <53 0.10 - 0.30 units/mL 53 - 67 0.30 - 0.70 units/mL* 67 - 95* 0.70 - 1.00 units/mL 95 - 116 *corresponds to therapeutic range for unfractionated heparin Blood specimen (specimen) 12/30/2008 6:47 PM CDT 12/30/2008 7:45 PM CDT us Xiomara Fitch MD HEMATOLOGY ORDERABLES Edited [facility] CLIA# [id number] [address] [place], [place] [address] * (ABNORMAL) COMPREHENSIVE METABOLIC PANEL (12/30/2008 6:47 PM CDT) [facility] POTASSIUM 3.8 3.5 - 4.9 mmol/L [facility] GLUCOSE 106(H) 65 - 99 mg/dL [facility] AST 20 12 - 32 U/L [facility] BUN 13 6 - 20 mg/dL [facility] CALCIUM 9.3 8.6 - 10.2 mg/dL [facility] CHLORIDE 101 96 - 108 mmol/L [facility] ALBUMIN 4.4 3.4 - 4.8 g/dL [facility] CREATININE 0.76 0.51 - 0.95 mg/dL [facility] SODIUM 135 135 - 145 mmol/L [facility] ALT 18 0 - 31 U/L [facility] ALKALINE PHOSPHATASE 83 35 - 104 U/L [facility] BILIRUBIN TOTAL 0.3 0.2 - 1.0 mg/dL [facility] CO2 23 22 - 30 mmol/L [facility] TOTAL PROTEIN 7.6 6.3 - 8.6 g/dL [facility] GFR, >60 >=60 mL/min/1. 7 sq meter [facility] GFR >60 >=60 mL/min/1. 7 sq meter [facility] Comment: Modification of Diet in Renal Disease (MDRD) study formula. Estimated GFR rate interpretative information for both Americans and non- Americans is available on the [facility] Intranet at: [email or web address] Select: Lab Policies and Procedures Select: Reference Ranges - GFR Blood specimen (specimen) 12/30/2008 6:47 PM CDT 12/30/2008 7:45 PM CDT us Xiomara Fitch MD CHEMISTRY ORDERABLES Edited [facility] CLIA# [id number] [address] [place] [address] * (ABNORMAL) CBC WITH DIFFERENTIAL (12/30/2008 6:47 PM CDT) MCV 89.3 82.0 - 99.0 fL [facility] PLATELETS 293 140 - 350 K/uL [facility] HEMOGLOBIN 14.6 11.8 - 14.8 g/dL [facility] RDW 12.8 11.5 - 14.5 % [facility] WBC 13.1(H) 4.0 - 9.8 K/uL [facility] MCH 31.1 27.2 - 32.6 pg [facility] MPV 10.3 9.3 - 12.4 fL [facility] HEMATOCRIT 41.9 35.5 - 44.0 % [facility] RDW-STDEV 41.4 37.1 - 48.7 fL [facility] RBC 4.69 3.90 - 4.90 M/uL [facility] MCHC 34.8 31.5 - 35.5 % [facility] EOSINOPHILS 0 0 - 7 % [facility] EOSINOPHIL ABSOLUTE 0.02 0.00 - 0.70 K/uL [facility] LYMPHOCYTES 8(L) 16 - 45 % [facility] LYMPHOCYTE ABSOLUTE 1.04 0.70 - 4.50 K/uL [facility] BASOPHILS 0 0 - 2 % [facility] BASOPHILS ABSOLUTE 0.03 0.00 - 0.20 K/uL [facility] MONOCYTES 5 3 - 13 % [facility] MONOCYTE ABSOLUTE 0.67 0.10 - 1.30 K/uL [facility] NEUTROPHILS 87(H) 45 - 70 % [facility] NEUTROPHIL ABSOLUTE 11.35(H) 1.90 - 7.00 K/uL [facility] Blood specimen (specimen) 12/30/2008 6:47 PM CDT 12/30/2008 7:45 PM CDT us Xiomara Fitch MD HEMATOLOGY ORDERABLES Edited [facility] CLIA# [id number] [address] [place] [address] * CT ANKLE WO CONTRAST RIGHT (12/30/2008 6:46 PM CDT) Anatomical Region Laterality Modality Ankle / Foot Other 12/30/2008 6:46 PM CDT Narrative 12/30/2008 7:35 PM CDT [facility] [address] [place], [place] [address] Admit Date: 12/30/2008 CATHERINE HAMMER Sex: F Admit Prov: ER, AUTHORIZED P Date: 1945 Primary Care Prov: NAOMY ENRIQUEZ CMRN: [id number] Room: [facility]-A SSN: [id number] IMAGING SERVICES Ordering Prov: N/A Accession Number: [id number] Interpretation EXAM: CT RIGHT ANKLE 12/30/2008 INDICATION: Multiple fractures. FINDINGS: There is fracture of the distal tibia with moderate comminution with multiple fracture planes extending to the tibial plafond of the ankle mortise joint. There is focal shear fracture versus chronic osteochondral defect involving the medial corner of the talar dome. There are a couple of tiny ossific fragments adjacent to the defect. There is a comminuted fracture of the distal fibula with multiple fracture fragments. There is a comminuted fracture fragment of the distal tibia at the lateral corner involving the plafond. This fracture fragment is displaced laterally about 1 cm. There is significant displacement of many of the distal fracture fragments of the fibula with posterior displacement of just over 100%. There is a main comminuted fracture fragment of the distal tibia which is also posteriorly displaced about 1 cm. This includes the entire posterior corner. The calcaneus is intact. The navicular and cuneiforms are intact. There is no evidence of tendon entrapment. IMPRESSION: Comminuted distal tibia and fibula fractures as described. There is also a focal defect in the medial corner of the talar dome which is more characteristic of an osteochondral defect with some loose cortical fragments that are not displaced. Given the history of trauma, it is difficult to say this is not an acute shear fracture, but the defect is well corticated and the fragments are rounded. . Dictated by: DEAN KEVIN 12/30/2008 19:17 Electronically signed by: DEAN KEVIN 12/30/2008 19:34 Transcribed: 12/30/2008 19:33 SJ Procedure Note Dean Kevin - 12/30/2008 [facility] [address] [place], [place] [address] Admit Date: 12/30/2008 CATHERINE HAMMER Sex: F Admit Prov: FLY MATHIEU Gresham Date: 1945 Primary Care Prov: PAIGESYJINA NAOMY Mary CMRN: [id number] Room: [facility] SSN: [address] [place] [address] IMAGING SERVICES Ordering Prov: N/A Interpretation EXAM: CT RIGHT ANKLE 12/30/2008 INDICATION: Multiple fractures. FINDINGS: There is fracture of the distal tibia with moderate comminutionwith multiple fracture planes extending to the tibial plafond of theankle mortise joint. There is focal shear fracture versus chronicosteochondral defect involving the medial corner of the talar dome. There are acouple of tiny ossific fragments adjacent to the defect. There is acomminuted fracture of the distal fibula with multiple fracture fragments. Thereis a comminuted fracture fragment of the distal tibia at the lateralcorner involving the plafond. This fracture fragment is displaced laterallyabout 1 cm. There is significant displacement of many of the distalfracture fragments of the fibula with posterior displacement of just yetu445%. There is a main comminuted fracture fragment of the distal tibiawhich is also posteriorly displaced about 1 cm. This includes the entireposterior corner. The calcaneus is intact. The navicular and cuneiforms areintact. There is no evidence of tendon entrapment. IMPRESSION: Comminuted distal tibia and fibula fractures as described. There is also a focal defect in the medial corner of the talar domewhich is more characteristic of an osteochondral defect with some loosecortical fragments that are not displaced. Given the history of trauma, itis difficult to say this is not an acute shear fracture, but the defectis well corticated and the fragments are rounded. . Dictated by: DEAN KEVIN 12/30/2008 19:17 Electronically signed by: DEAN KEVIN 12/30/2008 19:34 Transcribed: 12/30/2008 19:33 SJ us Xiomara Fitch MD CT ORDERABLES Final Result documented in this encounter Visit Diagnoses Not on filedocumented in this encounter Care Teams Stripping Cutter And Winder Relationship Specialty Start Date End Date Naomy Enriquez MD PCP - General 01/03/09 documented as of this encounter
--- OUTSIDE RECORDS SUMMARY | 2024-07-03 07:30 | XMS_ITS | Continuity of Care Document ---
Author Organization [facility] Address [address] [place] [address] Phone Care Team Providers Care Program Manager Name Role Phone Lilli Carter Unavailable Unavailable Advance Directives Directive Yes / No Effective Date File Name No Information Encounters Encounter Description Practice Location Reason(s) For Visit Diagnoses Date Provider Providers Copied on Encounter [facility], [address], [place], [place], [id number], [place] tel:[phone] [facility] No Information 3-200 4 Emma Reeder. [address] , [address], [place], [address], [place]. tel:[phone] Family History Family Member Type Diagnosis Age At Onset No Information Payers Payer name Insurance type Covered alliance party ID Authoriza tion(s) [employer] SOI CI [id number] [facility] Commercial CI [id number] Social History Type Description Quantity Date Captured Comments Sex Female Smoking Status No Information Chief Complaint And Reason For Visit No Information Reason For Referral Reason For Referral No Information History Of Present Illness Encounter Date Complaint History Of Prese nt Illness No Information Functional Status Date Functional Assessmen t No Information Instructions Date Instruction Additional Infor mation No Information Assessments Type Assessment Date No Information Patient Care Teams Name Effective Dates (start - stop) Status Members No Information
--- OUTSIDE RECORDS SUMMARY | 2024-07-03 07:30 | XMS_ITS | Clinical Summary ---
Author Organization [facility] Address [address] [place] [address] Phone Care Team Providers Care Derrick Engineer Name Role Phone Luciano Enriquez MD Primary Care Provider [phone] Allergies No known active allergies Medications CALCIUM CITRATE/VITAMIN D3 (CALCIUM CITRATE + D PO) Take 315 mg by mouth 2 times daily. Active PV W-O SIRISHA/FERROUS FUMARATE/FA (M-VIT PO) Take 1 Tab by mouth daily. Active CYANOCOBALAMIN (VITAMIN B-12 PO) Take 1,000 mg by mouth daily. Active ERGOCALCIFEROL (VITAMIN D PO) Take 1,000 Int'l Units by mouth. Active ascorbic acid (VITAMIN C) 500 mg Oral Tab Take 500 mg by mouth daily. Active loratadine (CLARITIN) 10 mg Oral Tab Take 10 mg by mouth daily. Active Glucosamine &Puuxbbmsu-CA-Ac n3 825-860-54-0.5 mg Oral Tab Take 325 mg by mouth 2 times daily. Active GLUCOS-MSM/CHOND RO ARIZMENDI A (GLUCOSAMINE-MSM -CHONDROITIN PO) Take 515 mg by mouth 2 times daily. Active OMEGA-3 FATTY ACIDS/VITAMIN E (OMEGA-3 FISH OIL PO) Take 600 mg by mouth daily after supper. Active ESTROGEN,CHAVO/M E-TESTOSTERONE (EST ESTROGENS-METHYL TEST PO) Take 1 Tab by mouth daily. Active sertraline (ZOLOFT) 50 mg Oral Tab Take 50 mg by mouth daily. Active metoprolol succinate (TOPROL XL) 25 mg Oral Tb24 Take 25 mg by mouth daily. Active simvastatin (ZOCOR) 10 mg Oral tablet Take 10 mg by mouth Daily LATE. Active Active Problems Problem Noted Date Diagnosed Date Closed Fracture of Shaft of R Fibula with Tibia 01/08/2009 Overview (01/08/2009): R pilon fx and dist fibula fx, s/p ex-fix placement on 12/31/08. 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 Gender Identity Not on file Sexual Orientation Not on file Last Filed Vital Signs Vital Sign Reading Time Taken Comments Blood Pressure 125/75 10/10/2009 8:58 AM CDT Pulse 66 01/15/2009 12:15 PM CDT Temperature 36.3 C (97.4 F) 10/10/2009 8:58 AM CDT Respiratory Rate 18 01/15/2009 12:15 PM CDT Oxygen Saturation 97% 01/15/2009 12:15 PM CDT Inhaled Oxygen Concentration - - Weight 76.7 kg (169 lb) 10/10/2009 8:58 AM CDT Height 168.9 cm (5' 6.5 ) 10/10/2009 8:58 AM CDT Body Mass Index 26.87 10/10/2009 8:58 AM CDT Plan of Treatment Health Maintenance Due Date Last Done Comments DTAP/TDAP/TD VACCINES (1 - Tdap) 09/12/1966 PNEUMOCOCCAL VACCINE 65+ YEARS (1 of 1 - PCV) 09/12/18 98 ZOSTER VACCINE (1 of 2) 09/12/1997 OSTEOPOROSIS SCREENING 09/12/2012 RSV VACCINE (60+ or ) (1 - 1-dose 75+ series) 09/12/2022 INFLUENZA VACCINE (#1) 2023 Medical Devices Implanted Type Area Moisture Meter Reader Device Identifier Shelf Expiration Date Model / Serial / Lot Cancellous Chips Implanted:Qty: 1 on 01/15/2009 at [facility] Bone Right: Ankle [employer] 07/23/2013 [id number] / / Description:15cc freeze gonzalo gotti cancellous chips Log 5112 - Desiree Small Frag 3.5 - 1 - Screw Miller Self Tap 3.5x14mm [id number] Implanted:Qty: 3 on 01/15/2009 at [facility] Screw [employer] 00-4 835-0 14- / / Log 5112 - Desiree Small Frag 3.5 - 1 - Screw Miller Self Tap 3.5x16mm [id number] Implanted:Qty: 1 on 01/15/2009 at [facility] Screw [employer] 00-4 835-0 16- / / Log 5112 - Desiree Small Frag 3.5 - 1 - Screw Miller Self Tap 3.5x28mm Implanted:Qty: 1 on 01/15/2009 at [facility] Screw [employer] 00-4 835-2 8-01 / / Description:load 43, exp dec 27 Log 5112 - Desiree Small Frag 3.5 - 1 - Screw Miller Self Tap 3.5x34mm [id number] Implanted:Qty: 1 on 01/15/2009 at [facility] Screw [employer] 00-4 835-0 34-01 / / Description:load 43, exp dec 27 Log 5112 - Desiree Small Frag 3.5 - 1 - Screw Miller Self Tap 3.5x45mm [id number] Implanted:Qty: 1 on 01/15/2009 at [facility] Screw [employer] 00-4 835-0 45-07 / / Description:load 43, exp dec 27 Screw Implanted:Qty: 1 on 01/15/2009 at [facility] Screw Right: Tibia [employer] -2359-0 28-27 / / Description:2.7 periarticula ting screw 28mm Screw Implanted:Qty: 1 on 01/15/2009 at [facility] Screw Right: Tibia [employer] -2359-0 28-35 / / Description:3.5 periarticula ting screw 28 mm Screw Implanted:Qty: 1 on 01/15/2009 at [facility] Screw Right: Tibia [employer] -2359-0 30-035 / / Description:3.5 periarticula ting screw 30 mm Screw Implanted:Qty: 1 on 01/15/2009 at [facility] Screw Right: Tibia [employer] 00-2359-0 38-35 / / Description:3.5 periarticula r screw 38mm Screw Implanted:Qty: 1 on 01/15/2009 at [facility] Screw Right: Fibula [employer] 00-4828-0 14-02 / / Description:2.7 locking scre w 14mm Screw Implanted:Qty: 1 on 01/15/2009 at [facility] Right: Tibia [employer] -2359-0 42-27 / / Description:2.7 pariarticula ting screw 42mm Screw Implanted:Qty: 1 on 01/15/2009 at [facility] Right: Tibia [employer] -2359-0 44-27 / / Description:2.7 periarticula r screw 44mm Screw Implanted:Qty: 2 on 01/15/2009 at [facility] Right: Tibia [employer] 00-2359-0 46-27 / / Description:2.7 periarticula ting screw 46mm Plate Implanted:Qty: 1 on 01/15/2009 at [facility] Right: Tibia [employer] 00-2357-0 01-15 / / Description:8 hole right dis samantha tibial locking plate Plate Implanted:Qty: 1 on 01/15/2009 at [facility] Right: Fibula [employer] 00-2357-0 17-06 / / Description:right 6 hole fib ular plate Screw Implanted:Qty: 1 on 01/15/2009 at [facility] Right: Fibula [employer] 00-4828-0 16-02 / / Description:2.7 locking scre w 16mm Screw Implanted:Qty: 2 on 01/15/2009 at [facility] Right: Fibula [employer] 00-4828-0 18-02 / / Description:2.7 locking scre w 18 mm Washer Implanted:Qty: 1 on 01/15/2009 at [facility] Right: Fibula [employer] 4900-40-5 1 / / Description:small washer Screw Implanted:Qty: 1 on 01/15/2009 at [facility] Right: Fibula [employer] 4827-54-0 1 / Description:2.7 cortical scr ew [address] [place] [address] [place] [id number] Advance Directives For more information, please contact: [phone] * Full Code (Latest Code Status on File) Date Activated Date Inactivated Comments 01/15/2009 11:12 AM 01/17/2009 3:15 PM Care Teams Derrick Engineer Relationship Specialty Start Date End Date Luciano Enriquez MD PCP - General 01/03/09
--- OUTSIDE RECORDS SUMMARY | 2024-07-03 07:30 | XMS_ITS | Encounter Summary ---
Author Organization [facility] Address 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
[2024-07-03 07:53] VITALS: BMI 26.6
[2024-07-03 07:56] VITALS: BP 150/88; PULSE 71; RESP 16; TEMP 37.3; O2SAT 99
[2024-07-03] MEDS: LACTATED RINGERS 1,000 ML 150 ML IV CONT (08:22)
--- NOTE | 2024-07-03 09:25 | PM.IMHP ---
H&P: HPI History of Present Illness Date/Time: 07/03/24 09:25 Chief Complaint: screening colonoscopy Narrative: This is the patient's first colonoscopy after 10 years.. There are no GI symptoms and there is no family history of colorectal cancer. Review of Systems Review of Systems: All systems reviewed & are unremarkable except as noted in HPI and below PMFSH Past Medical History Medical History (Updated 07/03/24 @ 09:26 by Manan Braden MD) Essential (primary) hypertension Pure hypercholesterolemia, unspecified Hearing aid worn Osteopenia after menopause Hormone replacement therapy (HRT) Migraine Family History Family History Sibling Family history of thyroid disease Hypertension Father Hypertension Family history of cardiovascular disease Mother Family history of Parkinson's disease Family history of dementia Other Diabetes mellitus Family history of anemia Social History Social History Social History: Caffeine- coffee Smoking status: Never smoker Second hand tobacco smoke exposure: Yes Alcohol intake: current Alcohol use details: rarely/monthly Substance use: never Substance use type: does not use Do You Feel Safe in your Home?: Yes Lack of Transportation: No Lack of Food: Never True Current Housing: I Have Housing Concerned About Future Housing: No Difficulty Paying Gas/Electric Bills: No Difficulty Paying for Meds: No Currently Unemployed: No Education: Bachelor's Degree Difficulty w/ Childcare or Family Care: No Living arrangements: with family Spiritual care concerns: No Meds Home Medications and Allergies Home Medications ?Medication ?Instructions ?Recorded ?Confirmed ?Type calcium 600 mg-D3 800 unit-mag11 1 tablet PO HS 04/27/19 07/03/24 History 50 dz-ybko-ygapjd-leyla-s.borat tablet (Caltrate 600-D Plus Minerals) cetirizine 10 mg tablet 5 mg PO DAILY 04/27/19 07/03/24 History cholecalciferol (vitamin D3) 25 1,000 unit PO DAILY 04/27/19 07/03/24 History mcg (1,000 unit) capsule fluticasone propionate 50 2 spray intranasal DAILY 04/27/19 07/03/24 History mcg/actuation nasal spray,suspension latanoprost 0.005 % eye drops 1 drp EACH EYE DAILY 09/26/21 07/03/24 History Seed Probiotic 1 tablet BYMOUTH DAILY #30 tabs 03/23/23 07/03/24 Rx polyethylene glycol 3350 17 17 g PO DAILY 09/16/23 07/03/24 History gram/dose oral powder (Miralax) mecobalamin (vitamin B12) 1,000 1,000 mcg PO DAILY 09/22/23 07/03/24 History mcg chewable tablet (B12 Active) multivitamin with minerals-folic 1 tablet PO DAILY 09/22/23 07/03/24 History acid 120 mcg chewable tablet (Centrum Adult 50 Plus Fresh-Fruity) omega-3 fatty acids 1,250 mg 1,250 mg PO DAILY 09/22/23 06/13/24 History capsule simvastatin 20 mg tablet See Rx Instructions .Route 01/24/24 07/03/24 Rx .COMPLEX #90 tabs sertraline 50 mg tablet (Zoloft) 50 mg PO DAILY #90 tabs 03/23/24 07/03/24 Rx meloxicam 15 mg tablet 15 mg PO DAILY #90 tabs 04/21/24 07/03/24 Rx estradiol 0.5 mg tablet (Estrace) 0.5 mg PO DAILY #90 tabs 05/16/24 07/03/24 Rx apple cider vinegar 500 mg tablet 500 mg PO BID 06/13/24 07/03/24 History magnesium glycinate 100 mg (as 480 mg PO DAILY 06/13/24 07/03/24 History glycinate) tablet (Mag Glycinate) Allergies Allergy/AdvReac Type Severity Reaction Status Date / Time irbesartan Allergy Unknown Unknown Verified 07/03/24 07:49 lisinopril AdvReac Unknown Cough Verified 07/03/24 07:49 lovastatin AdvReac Unknown Muscle Pain Verified 07/03/24 07:49 Vital Signs Vital Signs - 24 hr 07/03/24 07:56 Temperature 99.1 F Pulse Rate 71 Respiratory Rate 16 Blood Pressure 150/88 H Pulse Oximetry 99 Oxygen Delivery Room Air Exam Const: General: cooperative and healthy appearing Resp: Effort & Inspection: normal respiratory effort and able to speak in complete sentences Auscultation: clear to auscultation bilaterally Cardio: Rate: regular rate Rhythm: regular rhythm GI: Inspection: normal to inspection GI Palp: No No hepatosplenomegaly present Auscultation: normal bowel sounds Rectal Exam: deferred Skin: General skin exam: normal color Psych: Appearance: grossly normal Mental Status: mental status grossly normal Assessment and Plan Assessment and plan (1) Encounter for screening colonoscopy: Code(s): Z12.11 - Encounter for screening for malignant neoplasm of colon Status: Acute Assessment and Plan: The patient is deemed a good candidate for the procedure. Consent signed. Will proceed.
[2024-07-03] MEDS: SIMETHICONE ORAL SUSPENSION 20 MG/0.3 ML 30 ML BOTTLE 0.6 ML IRRIGATION (09:50)
[2024-07-03 09:59] VITALS: BP 147/80; PULSE 92; RESP 14; O2SAT 100
--- NOTE | 2024-07-03 10:05 | WPDANESPN ---
Anes - Prog Note Post-Op Date/Time: 07/03/24 10:05 Cardiovascular status: normal Respiratory status: normal Airway patency: baseline Mental status: baseline Post-Op hydration status: normal Vital Signs: Last Vital Signs Temp 37.3 C 07/03/24 07:56 Pulse 92 07/03/24 09:59 Resp 14 07/03/24 09:59 BP 147/80 H 07/03/24 09:59 Pulse Ox 100 07/03/24 09:59 O2 Del Method Room Air 07/03/24 09:59 Pain Score (VAS): 0 I/O: Intake & Output 07/02/24 07/03/24 07/03/24 23:59 07:59 15:59 Intake Total 500 Balance 500 Post-procedural complaints: none Patient Feedback: Patient satisfied with anesthetic care. Other Findings: Patient vital signs back to baseline. Patient denies nausea and vomiting. Patient's pain under control. Patient OK for discharge.
[2024-07-03 10:09] VITALS: BP 147/83; PULSE 65; RESP 16; O2SAT 100
[2024-07-03 10:19] VITALS: BP 155/76; PULSE 63; RESP 16; O2SAT 100
== END 2024-07-03 10:53 | disposition home or self-care (01) ==
PROVIDERS: PCP Family Medicine; Referring Provider Nurse Practitioner Family; Visit Provider Internal Medicine Gastroenterology
PROC: 0DJD8ZZ Inspection of Lower Intestinal Tract, Via Natural or Artificial Opening Endoscopic (ICD-10-PCS; CPT 45378; principal; 2024-07-03 09:00)
DX: Z12.11 Encounter for screening for malignant neoplasm of colon (principal); K57.30 Diverticulosis of large intestine without perforation or abscess without bleeding
CPT/HCPCS: G0121

== ENCOUNTER 2025-03-21 13:47 | Outpatient (CLI) | payer MEDICARE, SELFPAY ==
--- NOTE | ~2025-03-21 | MM_ITS ---
EXAMINATION: MM screening meghan BI w [facility]on HISTORY: Screening TECHNIQUE: Craniocaudal and mediolateral oblique 3-D tomosynthesis images were obtained and synthetic 2-D images were generated. CAD analysis was submitted and interpreted. COMPARISON: Comparison to multiple prior studies sequentially, with oldest reviewed study dated 09/29/2017. BREAST PARENCHYMAL COMPOSITION: Not dense: There are scattered areas of fibroglandular density. FINDINGS: Stable architectural distortion outer aspect of the right breast from previous biopsy. No new masses, calcifications or architectural distortion in either breast to suggest malignancy. IMPRESSION: 1. No mammographic evidence of malignancy. 2. Recommend routine screening mammography in one year. BI-RADS Category 2: Benign finding(s). Reviewed, dictated and finalized at location [address]
--- NOTE | ~2025-03-21 | DEXA_ITS ---
Bone Density Report Name: MAIDSON HAMMER Age: 79 Sex: Female Ethnicity: White Date of : 1945 Indication: postmenopausal; screening for osteoporosis; hysterectomy; Referring Provider: NAOMY BOSWELL Study: Bone densitometry was performed. Exam Date: March 21, 2025 Accession number: [id number] Bone Density: Region BMD T-score Z-score Classification AP Spine(L1, L2) 1.081 0.9 3.3 Normal Femoral Neck (Left) 0.746 -0.9 1.3 Normal Total Hip (Left) 0.953 0.1 2.0 Normal Femoral Neck (Right) 0.654 -1.8 0.4 Osteopenia Total Hip (Right) 0.897 -0.4 1.5 Normal Total Hip Mean 0.925 -0.2 1.8 Normal World Health Organization criteria for BMD impression classify patients as: Normal (T-score at or above -1.0), Osteopenia (T-score between -1.0 and -2.5), or Osteoporosis (T-score at or below -2.5). 10-year Fracture Risk(1): Major Osteoporotic Fracture 13% Hip Fracture 3.3% Reported Risk Factors: [place] (), Neck BMD=0.654, BMI=25.8 (1) FRAX(R) Version 3.08. Fracture probability calculated for an untreated patient. Fracture probability may be lower if the patient has received treatment. Previous Exams: Region Exam Age BMD T-score BMD Change BMD Change Date g/cm2 vs Baseline vs Previous AP Spine (L1-L2) 03/21/2025 79 1.081 0.9 0.057 (5.5%)* 0.106 (10.9%)* 11/15/2019 74 0.975 0.0 -0.050 (-4.8%) -0.050 (-4.8%) 09/29/2017 72 1.025 0.4 Total Hip(Left) 03/21/2025 79 0.953 0.1 0.005 (0.5%) 0.016 (1.7%) 11/15/2019 74 0.937 0.0 -0.011 (-1.2%) -0.011 (-1.2%) 09/29/2017 72 0.948 0.1 Total Hip(Right) 03/21/2025 79 0.897 -0.4 -0.029 (-3.1%) -0.028 (-3.1%) 11/15/2019 74 0.925 -0.1 0.000 (0.0%) 0.000 (0.0%) 09/29/2017 72 0.925 -0.1 *Denotes significance at 95% confidence level, LSC for AP Spine = 0.022 g/cm2, LSC for Total Hip = 0.027 g/cm2 Clinical Information Provided by Patient: Has the following medical conditions: Hysterectomy Patient maximum height was 65 Menopause Age: 54 Drinks caffeinated beverages Onset of menses at age 16 Impression: The patient has low bone mass, based on the Right Femoral Neck T-score. The patient has an estimated ten-year risk of hip fracture of 3.3% and an estimated ten-year risk of major fracture of 13%, based on the WHO FRAX algorithm. The BMD for the Total Hip(Right) decreased, changing by -3.1% since the last DXA exam. Discussion: BONE DENSITY IS LOW AT ONE OR MORE SKELETAL SITES. THE PATIENT'S BMD AND CLINICAL RISK FACTORS CONTRIBUTE TO THIS PATIENT'S INCREASED RISK OF FRACTURE. This patient's lowest T-score is low at one or more skeletal sites. It meets the World Health Organization's (WHO) criteria for ?low bone mass? (T-score between -1.0 and -2.5). The patient's 10-year risk of hip fracture as calculated by FRAX exceeds the threshold where pharmacological therapy is recommended by the National Osteoporosis Foundation (NOF). However, all treatment decisions require clinical judgment and consideration of individual patient factors, including patient preferences, comorbidities, previous drug use, risk factors not captured in the FRAX model (e.g., frailty, falls, vitamin D deficiency, increased bone turnover, interval significant decline in bone density) and possible under or overestimation of fracture risk by FRAX. The patient should follow a healthful lifestyle (good nutrition with adequate calcium and vitamin D, and appropriate weight-bearing exercise). Follow-Up: Consider a repeat BMD and Vertebral Fracture Assessment (VFA) exam in 2 years or sooner if medically necessary, to reassess this patient's status. Reported by: JENNA on 03/21/2025 2:31:00 PM. Reviewed, dictated and finalized at location A.
--- OUTSIDE RECORDS SUMMARY | 2025-03-21 14:52 | XMS_ITS | Clinical Summary ---
Author Organization [facility] Address [address] [place] [address] Phone Care Team Providers Care Capacity Analyst Name Role Phone Luciano Enriquez MD Primary Care Provider +1- [phone] Allergies No known active allergies Medications CALCIUM [...] 10 mg by mouth daily. 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 Gender Identity Not on file Sexual Orientation [...] 8:58 AM CDT Height 168.9 cm (5' 6.5) 10/10/2009 8:58 AM CDT Body Mass Index 26.87 10/10/2009 8:58 AM CDT Plan of Treatment Health Maintenance Due Date Last Done Comments DTAP/TDAP/TD VACCINES (1 - Tdap) 09/12/1966 PNEUMOCOCCAL VACCINE 50+ YEARS (1 of 1 - PCV) 09/12/18 98 ZOSTER VACCINE (1 of 2) 09/12/1997 OSTEOPOROSIS SCREENING 09/12/2012 RSV VACCINE (60+ or ) (1 - 1-dose 75+ series) 09/12/2022 INFLUENZA VACCINE (#1) 2024 Medical Devices Implanted Type Area Cq Developer Device Identifier Shelf Expiration Date Model / Serial / Lot Cancellous Chips Implanted:Qty: 1 on 01/15/2009 at [facility] Bone Right: Ankle [employer] 07/23/2013 [id number] / / Description:15cc freeze gonzalo gotti cancellous chips Log 5112 - Desiree Small Frag 3.5 - 1 - Screw Miller Self Tap 3.5x14mm [id number] Implanted:Qty: 3 on 01/15/2009 at [facility] Screw [employer] 00-4 835-0 14- / / Log 5112 - Desiree Small Frag 3.5 - 1 - Screw Miller Self Tap 3.5x16mm [id number] Implanted:Qty: 1 on 01/15/2009 at [facility] Screw [employer] 00-4 835-0 16- / / Log 5112 - Desiree Small Frag 3.5 - 1 - Screw Miller Self Tap 3.5x28mm Implanted:Qty: 1 on 01/15/2009 at [facility] Screw [employer] 00-4 835-2 8-01 / / Description:load 43, exp dec 27 Log 5112 - Desiree Small Frag 3.5 - 1 - Screw Miller Self Tap 3.5x34mm [id number] Implanted:Qty: 1 on 01/15/2009 at [facility] Screw [employer] 00-4 835-0 34-01 / / Description:load 43, exp dec 27 Log 5112 - Desiree Small Frag 3.5 - 1 - Screw Miller Self Tap 3.5x45mm [id number] Implanted:Qty: 1 on 01/15/2009 at [facility] Screw [employer] 00-4 835-0 45-07 / / Description:load 43, exp dec 27 Screw Implanted:Qty: 1 on 01/15/2009 at [facility] Screw Right: Tibia [employer] -2359-0 28-27 / / Description:2.7 periarticula ting screw 28mm Screw Implanted:Qty: 1 on 01/15/2009 at [facility] Screw Right: Tibia [employer] -2359-0 28-35 / / Description:3.5 periarticula ting screw 28 mm Screw Implanted:Qty: 1 on 01/15/2009 at [facility] Screw Right: Tibia [employer] -2359-0 30-035 / / Description:3.5 periarticula ting screw 30 mm Screw Implanted:Qty: 1 on 01/15/2009 at [facility] Screw Right: Tibia [employer] 00-2359-0 38-35 / / Description:3.5 periarticula r screw 38mm Screw Implanted:Qty: 1 on 01/15/2009 at [facility] Screw Right: Fibula [employer] 00-4828-0 14-02 / / Description:2.7 locking scre w 14mm Screw Implanted:Qty: 1 on 01/15/2009 at [facility] Right: Tibia [employer] -2359-0 42-27 / / Description:2.7 pariarticula ting screw 42mm Screw Implanted:Qty: 1 on 01/15/2009 at [facility] Right: Tibia [employer] -2359-0 44-27 / / Description:2.7 periarticula r screw 44mm Screw Implanted:Qty: 2 on 01/15/2009 at [facility] Right: Tibia [employer] 00-2359-0 46-27 / / Description:2.7 periarticula ting screw 46mm Plate Implanted:Qty: 1 on 01/15/2009 at [facility] Right: Tibia [employer] 00-2357-0 01-15 / / Description:8 hole right dis samantha tibial locking plate Plate Implanted:Qty: 1 on 01/15/2009 at [facility] Right: Fibula [employer] 00-2357-0 17-06 / / Description:right 6 hole fib ular plate Screw Implanted:Qty: 1 on 01/15/2009 at [facility] Right: Fibula [employer] 00-4828-0 16-02 / / Description:2.7 locking scre w 16mm Screw Implanted:Qty: 2 on 01/15/2009 at [facility] Right: Fibula [employer] 00-4828-0 18-02 / / Description:2.7 locking scre w 18 mm Washer Implanted:Qty: 1 on 01/15/2009 at [facility] Right: Fibula [employer] 4900-40-5 1 / / Description:small washer Screw Implanted:Qty: 1 on 01/15/2009 at [facility] Right: Fibula [employer] 4827-54-0 1 Description:2.7 cortical scr ew [address] [facility] [employer] PPO [id number] Advance Directives For more information, please contact: [phone] * Full Code (Latest Code Status on File) Date Activated Date Inactivated Comments 01/15/2009 11:12 AM 01/17/2009 3:15 PM Care Teams Capacity Analyst Relationship Specialty Start Date End Date Luciano Enriquez MD PCP - General 01/03/09
--- OUTSIDE RECORDS SUMMARY | 2025-03-21 14:52 | XMS_ITS | Encounter Summary ---
Author Organization [employer] Address 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
--- OUTSIDE RECORDS SUMMARY | 2025-03-21 14:52 | XMS_ITS | Patient Health Record ---
Author Organization [facility] fermin Address [address] [place] [address] Care Team Providers Care Human Resources Records Clerk Name Role Phone Alisia KINGSTON , Effie Primary Care Provider Rivas Fior Mercado Unavailable [phone] Allergies No Known Allergies Results Component Value Reference Range Notes [facility] Reviewed date:02/28/2025 07:33:39 PM Interpretation: Performing Lab:[facility] , [address] [place] [address] Notes/Report: Keyword See Below ACLIP Phospholi pid (Cardiolipin) Antibodies, IgA, Misc Result See Footnote Test Result Flag Unit RefValue ------ Phospholipid Ab IgA, S <9.4 APL -- REFERENCE VALUE -- <15.0 (Negative) Test Performed by: [facility] [address] [place] [address] Adjunct Political Science Instructor: Arnel Nuñez Ph.D.; CLIA# [id number] [facility] Reviewed date:02/26/2025 08:59:18 AM Interpretation: Performing Lab:[facility] , [address] [facility]. [place] [address] Notes/Report: Keyword See Below AB2GP Beta-2 Gl ycoprotein 1 Antibodies, IgA, Serum Misc Result See Footnote Test Result Flag Unit RefValue ------ Beta 2 GP1 Ab IgA, S <9.4 KACIE -- REFERENCE VALUE -- <15.0 (Negative) Test Performed by: [facility] [address] [place] [address] Adjunct Political Science Instructor: Arnel Nuñez Ph.D.; CLIA# [id number] UA, reflex Micro to Culture Reviewed date:02/20/2025 09:19:36 PM Interpretation: Performing Lab:[facility] , [address] [place] [address]. [place] [id number] Notes/Report: Color, Ur Yellow Yellow Clarity, Ur Clear Clear Spec Grav, Ur 1.014 1.003-1.03 pH, Ur 6.5 Interpretive Data ?Urine pH is affected by diet, medications, systemic acid-base disturbances, and renal tubular function. pH may affect urinary stone formation. For example, urine pH below 6.0 may help reduce the tendency for calcium phosphate stones and pH greater than 6.0 may reduce the tendency for uric acid stone formation. Source: [facility] Current Interpretive Data was last revised on 2017 Protein, Ur Ql Negative Negative Glucose, Ur Ql Negative Negative Ketones, Ur Negative Negative Bilirubin, Ur Negative Negative Blood, Ur Negative Negative Urobilinogen, Ur <2.0 <2.0 mg/dL Nitrite, Ur Negative Negative Leukocyte Esterase, Ur Negative Negative UA reflex comment See Below Reflex con ditions for microscopic UA and culture not met. Sed Rate Reviewed date:02/20/2025 09:19:36 PM Interpretation: Performing Lab:[facility] , [address] [place] [address]. [facility] [address] Notes/Report: ESR 7 1-30 mm/hr Rheumatoid Factor Reviewed date:02/20/2025 09:19:36 PM Interpretation: Performing Lab:[facility] , [address] [place] [address]. [facility] [address] Notes/Report: RF, [place] <10 <=15 IUnits/mL Histone ab Reviewed date:02/27/2025 09:50:54 PM Interpretation: Performing Lab:[facility] , [address] [place] [address] Notes/Report: Histone Ab <1.0 Value Explanation of Results ------ <1.0 Negative 1.0-1.5 Weak Positive 1.6-2.5 Moderate Positive >2.5 Strong Positive Test Performed at: [facility] [address] [place] [address] LUANNE FALCON G6PD Ql Reviewed date:02/20/2025 09:19:36 PM Interpretation: Performing Lab:[facility] , [address] [place] [address] Notes/Report: G6PD, Qual Normal Normal Interp data: G6PD activity should be interpreted in the context of a patient's hematocrit. Hematocrit < 20% may lead to a falsely deficient result, while hematocrit > 50% may lead to a falsely normal result. Current interpretive data was last revised on 2019. Testing performed by: [facility], [address] [place]., [address] Creatine Kinase Reviewed date:02/20/2025 09:19:36 PM Interpretation: Performing Lab:[facility] , [address] [place] [address]. [facility] [address] Notes/Report: Total CK 146 30-200 Units/L Complement C4 Reviewed date:02/20/2025 09:19:36 PM Interpretation: Performing Lab:[facility] , [address] [place] [address]. [facility] [address] Notes/Report: Complement, C4 30 10-40 mg/dL Complement C3 Reviewed date:02/20/2025 09:19:35 PM Interpretation: Performing Lab:[facility] , [address] [place] [address]. [facility] [address] Notes/Report: Complement, C3 125 90-180 mg/dL C Reactive Protein Reviewed date:02/20/2025 09:19:35 PM Interpretation: Performing Lab:[facility] , [address] [facility]. [place] [address] Notes/Report: C-Reactive Protein <3.0 <=10.0 mg/L Aldolase Reviewed date:02/20/2025 09:19:35 PM Interpretation: Performing Lab:[facility] , [address] [facility]. [place] [address] Notes/Report: Aldolase 4.7 0.1-8.0 Units/L Testing performed by: [facility], [address] [place]., [address] Reason For Referral No Information Medications Medication SIG (Take, Route, Frequency, Duration) Notes Start Date End Date Status Latanoprost 0.005 % 1 drop into affected eye in the evening Ophthalmic Once a day Active Sertraline HCl 50 MG 1 tablet Orally Onc e a day Active Meloxicam 15 MG 1 tablet Orally Once a day Active Simvastatin 20 MG 1 tablet in the even ing Orally Once a day Active Nystatin-Triamcinolone 805096-5.1 UNIT/GM APPLY CREAM TOPICALLY TO AFFECTED AREA THREE TIMES DAILY External; Duration: 30 Days Active Estradiol 0.5 MG 1 tablet Orally Once a day Active Social History AUDIT-C (Standard) Question Answer Notes Did you have a drink contain ing alcohol in the past year? Yes How often did you have a dri nk containing alcohol in the past year? Monthly or less (1 point) How many drinks did you have on a typical day when you were drinking in the past year? 1 or 2 drinks (0 point) How often did you have six o r more drinks on one occasion in the past year? Less than monthly (1 point) Points 2 Interpretation Negative Problems Problem Type SNOMED Code ICD Code Onset Dates Problem Status W/U Status Risk Notes Problem Information temporarily unavailable Sicca, unspecified type (M35.00) Active confirmed Vital Signs Heart Rate 88 /min 03/05/2025 Temperature 98.0 degrees Fahrenheit 03/05/2025 Oximetry 96 % 03/05/2025 Blood pressure diastolic 90 mm Hg 03/05/2025 Weight-kg 73.03 kg 03/05/2025 Blood pressure systolic 146 mm Hg 03/05/2025 Weight 161.0 lbs 03/05/2025 Encounters Encounter Location Date Provider Diagnosis [facility] [address] [facility] [address] [place] [address] 02/20/2025 Fior Chavis ANALIA positive R76.89 ; Muscle cramps R25.2 ; Other malaise R53.81 ; Other fatigue R53.83 and Sicca, unspecified type M35.00 [facility] [address] [facility] [address] [place] [address] 03/05/2025 Fior Chavis ANALIA positive R76.89 ; Sicca, unspecified type M35.00 and Antiphospholipid antibody positive R76.0 [facility] [address] [facility] [address] [place] [address] 03/04/2025 Fior Chavis Assessments Encounter Date Diagnosis (ICD Code) Assessment Notes Treatment Notes Treatment Clinical Notes Section Notes 02/20/2025 Muscle cramps (ICD-10 - R25.2) 79 year old female with recent history of poison kirsten. She was treated with steroid injection and prednsione. She developed muscle cramps and fatigue in 01/2025. ANALIA came back positive. She is referred here for further evluation. Additional labs will be ordered. Follow up visit will be scheduled. Thank you for referring this patient[facility] ANALIA positive (ICD-10 - R76.89) 79 year old female with recent history of poison kirsten. She was treated with steroid injection and prednsione. She developed muscle cramps and fatigue in 01/2025. ANALIA came back positive. She is referred here for further evluation. Additional labs will be ordered. Follow up visit will be scheduled. Thank you for referring this patient. VASHTI Rosales 03/05/2025 Sicca, unspecified type (ICD-10 - M35.00) labs discussed, anti-H9bqvdrx roein 1 IgG and IgM positive, no history of blood clots, +history of miscarriage, will repeat anti-D0mlfjbv roein 1 IgG and IgM positive in 12 weeks, advised to taper off estradiol 03/05/2025 ANALIA positive (ICD-10 - R76.89) labs discussed, anti-N5jqyjme roein 1 IgG and IgM positive, no history of blood clots, +history of miscarriage, will repeat anti-T2nizfkw roein 1 IgG and IgM positive in 12 weeks, advised to taper off estradiol 03/05/2025 Antiphospholipid antibody positive (ICD-10 - R76.0) labs discussed, anti-S1jgvrpy roein 1 IgG and IgM positive, no history of blood clots, +history of miscarriage, will repeat anti-X3yowvzj roein 1 IgG and IgM positive in 12 weeks, advised to taper off estradiol 02/20/2025 Other malaise (ICD-10 - R53.81) 79 year old female with recent history of poison kirsten. She was treated with steroid injection and prednsione. She developed muscle cramps and fatigue in 01/2025. ANALIA came back positive. She is referred here for further evluation. Additional labs will be ordered. Follow up visit will be scheduled. Thank you for referring this patient. pierre Crump [employer] 02/20/2025 Other fatigue (ICD-10 - R53.83) 79 year old female with recent history of poison kirsten. She was treated with steroid injection and prednsione. She developed muscle cramps and fatigue in 01/2025. ANALIA came back positive. She is referred here for further evluation. Additional labs will be ordered. Follow up visit will be scheduled. Thank you for referring this patient. VASHTI Rosales 02/20/2025 Sicca, unspecified type (ICD-10 - M35.00) 79 year old female with recent history of poison kirsten. She was treated with steroid injection and prednsione. She developed muscle cramps and fatigue in 01/2025. ANALIA came back positive. She is referred here for further evluation. Additional labs will be ordered. Follow up visit will be scheduled. Thank you for referring this patient. pierre Crump [facility] Plan Of Treatment Pending Test Test Name Order Date Anti-CCP (Cyclic Citrullinated Peptide A b) 02/20/2025 Beta 2 Glycoprotein Ab IgG, IgM 02/21/20 25 Beta 2 Glycoprotein IgA Ab 02/20/2025 Cardiolipin Ab (IgA) 02/20/2025 Cardiolipin Ab (Ig G) 02/20/2025 Cardiolipin Ab (Ig M) 02/20/2025 DS DNA 02/20/2025 Lupus Anticoagulant w/Reflex 02/20/2025 Ribonuclear Protein ([employer]RI[employer]) Ab 02/20/2025 SCL 70 Antibodies 02/20/2025 Min Ab. 02/20/2025 SSA Ab 02/20/2025 SSB Ab 02/20/2025 Next Appt Details Provider Name:Fior Chavis, 05/22 03:15:00 PM, [address] [facility] [address], [place], [address], Insurance Providers Payer Name Payer Address Payer Phone Subscriber Number Group Number Insured Name Patient Relationship to Insured Coverage Start Date Coverage End Date Medicare [address] [address] [place] [phone] [id number] Catherine Blas Self - patient is the insured [employer]- Senior Supplement [address] [address] [place] [phone] [id number] Catherine Blas Self - patient is the insured Medical (General) History Medical History History ICD Code hypertension, hyperlipidemia, hearing lo ss, osteopenia, migraine, glaucoma Surgical History Surgery Date(Month/Year) back surgery 06/1998 hysterectomy 04/2000 lumpectomy- right breast 09/2002 surgery on right ankle 12/2008 surgery right ankle again 01/2009 gallbladder removal 01/2010 right eye cataract 06/2022 left eye cataract 07/2022
--- OUTSIDE RECORDS SUMMARY | 2025-03-21 14:52 | XMS_ITS | Encounter Summary ---
Author Organization [employer] Address 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, [place] [address] Admit Date: 12/30/2008 CATHERINE HAMMER Sex: F Admit Prov: EZEKIEL STOVER Date: 1945 Primary Care Prov: NAOMY ENRIQUEZ CMRN: [id number] Room: [address] [place] [address] SSN: [id number] IMAGING SERVICES Ordering Prov: N/A Accession Number: [id number] Interpretation RIGHT ANKLE AP AND LATERAL, 12/31/08 [...] Procedure Note Gerardo Nagy MD - 12/31/2008 [facility] [address] [place], [place] [address] Admit Date: 12/30/2008 CATHERINE HAMMER Sex: F Admit Prov: EZEKIEL STOVER Date: 1945 Primary Care Prov: NAOMY ENRIQUEZ CMRN: [id number] Room: [address] [place] [address] SSN: [id number] IMAGING SERVICES Ordering Prov: N/A Interpretation RIGHT [...] AM CDT Narrative 01/05/2009 9:58 PM CDT [facility] [address] [place], [place] [address] Admit Date: 12/30/2008 CATHERINE HAMMER Sex: F Admit Prov: EZEKIEL STOVER Date: 1945 Primary Care Prov: NAOMY ENRIQUEZ CMRN: [id number] Room: [address] [place] [address] SSN: [id number] IMAGING SERVICES Ordering Prov: EZEKIEL STOVER Accession Number: [id number] Interpretation Fluoroscopic guidance was used by the surgeon to assist with performance of this intra-operative procedure. Please refer to surgeon s operative report for specific details. Dictated by: RADIOLOGY, DEPARTMENT O Electronically signed by: RADIOLOGY, DEPARTMENT 01/05/2009 20:44 Transcribed: 01/05/2009 19:21 AMK Procedure Note Radiology, Radiologist - 01/05/2009 [facility] [address] [place], [place] [address] Admit Date: 12/30/2008 CATHERINE HAMMER Sex: F Admit Prov: JOLANTAEZEKIEL Tasha Date: 1945 Primary Care Prov: NAOMY ENRIQUEZ CMRN: [id number] Room: [address] [place] [address] SSN: [id number] IMAGING SERVICES Ordering Prov: JOLANTA EZEKIEL Cordova [...] AND SCREEN (12/31/2008 7:24 AM CDT) Pathologist [facility] [place] HISTORY CHECK No Historical ABO/Rh [facility] ABO/RH TYPE O Positive [facility] SPECIMEN LIFE 3 days from drawdate [facility] ANTIBODY SCREEN Negative [facility] Blood specimen (specimen) 12/31/2008 7:24 AM CDT Ezekiel Stover MD BLOOD BANK ORDERABLES Edited INTERFACE SYSTEM Refer to clinic/hospital department [facility] CLIA# [id number] [address] [place] [address] * (ABNORMAL) CBC WITH DIFFERENTIAL (12/30/2008 9:45 PM CDT) MCV 90.1 82.0 - 99.0 fL [facility] PLATELETS 279 140 - 350 K/uL [facility] HEMOGLOBIN 14.4 11.8 - 14.8 g/dL [facility] RDW 12.8 11.5 - 14.5 % [facility] WBC 13.3(H) 4.0 - 9.8 K/uL [facility] MCH 31.0 27.2 - 32.6 pg [facility] MPV 9.9 9.3 - 12.4 fL [facility] HEMATOCRIT 41.9 35.5 - 44.0 % [facility] RDW-STDEV 41.6 37.1 - 48.7 fL [facility] RBC 4.65 3.90 - 4.90 M/uL [facility] MCHC 34.4 31.5 - 35.5 % [facility] EOSINOPHILS 0 0 - 7 % [facility] EOSINOPHIL ABSOLUTE 0.03 0.00 - 0.70 K/uL [facility] LYMPHOCYTES 12(L) 16 - 45 % [facility] LYMPHOCYTE ABSOLUTE 1.57 0.70 - 4.50 K/uL [facility] BASOPHILS 0 0 - 2 % [facility] BASOPHILS ABSOLUTE 0.03 0.00 - 0.20 K/uL [facility] MONOCYTES 5 3 - 13 % [facility] MONOCYTE ABSOLUTE 0.67 0.10 - 1.30 K/uL [facility] NEUTROPHILS 83(H) 45 - 70 % [facility] NEUTROPHIL ABSOLUTE 10.97(H) 1.90 - 7.00 K/uL [facility] Blood specimen (specimen) 12/30/2008 9:45 PM CDT 12/30/2008 9:53 PM CDT Ezekiel Stover MD HEMATOLOGY ORDERABLES Edited Performing Organization Address City/[facility] Co de Phone Number [facility] CLIA# [id number] [address] [place] [address] * PROTIME-INR (12/30/2008 9:45 PM CDT) INR 1.0 0.9 - 1.1 [facility] Comment: INR Therapeutic Range: Adult: 2.0 - 3.0 for pulmonary embolism or prophylaxis against venous thrombosis or systemic embolization. 2.0 - 3.0 for patients with tissue heart valves. 2.5 - 3.5 for patients with mechanical heart valves or post MN. Pediatric (12 years and under): 1.5 - 3.0 Although the target range in children is not well established, INR values of 1.5 - 3.0 are recommended for most patients. Higher values have been used in children with prosthetic cardiac valves and hereditary clotting disorders. (<3 days) therapeutic ranges have not been established. PROTIME 13.9 12.7 - 15.1 Seconds [facility] Blood specimen (specimen) 12/30/2008 9:45 PM CDT 12/30/2008 9:53 PM CDT Ezekiel Stover MD HEMATOLOGY ORDERABLES Final Resu lt Performing Organization Address City/[facility]/ZIP Co de Phone Number [facility] CLIA# [id number] [address] [place] [address] * (ABNORMAL) BASIC METABOLIC PANEL (12/30/2008 9:45 PM CDT) BUN 12 6 - 20 mg/dL [facility] CHLORIDE 99 96 - 108 mmol/L [facility] GLUCOSE 109(H) 65 - 99 mg/dL [facility] SODIUM 136 135 - 145 mmol/L [facility] CALCIUM 8.8 8.6 - 10.2 mg/dL [facility] CO2 26 22 - 30 mmol/L [facility] CREATININE 0.77 0.51 - 0.95 mg/dL [facility] POTASSIUM 3.6 3.5 - 4.9 mmol/L [facility] GFR, >60 >=60 mL/min/1. 7 sq meter [facility] GFR >60 >=60 mL/min/1. 7 sq meter [facility] Comment: Modification of Diet in Renal Disease (MDRD) study formula. Estimated GFR rate interpretative information for both Americans and non- Americans is available on the [facility] Intranet at: [email or web address] Select: Lab Policies and Procedures Select: Reference Ranges - GFR Blood specimen (specimen) 12/30/2008 9:45 PM CDT 12/30/2008 9:53 PM CDT us Ezekiel Stover MD CHEMISTRY ORDERABLES Edited [facility] CLIA# [id number] [address] [place] [address] * XR ANKLE 3+ VW RIGHT (12/30/2008 7:40 PM CDT) Anatomical Region Laterality Modality Ankle / Foot Other 12/30/2008 7:40 PM CDT Narrative 12/30/2008 8:19 PM CDT [facility] [address] [place], [place] [address] Admit Date: 12/30/2008 CATHERINE HAMMER Sex: F Admit Prov: EZEKIEL STOVER Date: 1945 Primary Care Prov: NAOMY ENRIQUEZ CMRN: [id number] Room: [facility] SSN: [id number] IMAGING SERVICES Ordering Prov: N/A Accession Number: [id number] Interpretation EXAM: RIGHT ANKLE 3 VIEWS, 12/30/2008 [...] 20:16 SJ Procedure Note Dean Kevin 12/30/[address] [address] Admit Date: 12/30/2008 HAMMER CATHERINE M Sex: F Admit Prov: EZEKIEL STOVER Date: 1945 Primary Care Prov: NAOMY ENRIQUEZ CMRN: [id number] [facility] SS[facility]: [id number] IMAGING SERVICES Ordering Prov: N/A Interpretation EXAM: [...] PM CDT Narrative 12/30/2008 7:33 PM CDT [address] [place], [place] [address] Admit Date: 12/30/2008 CATHERINE HAMMER Sex: F Admit Prov: ER, AUTHORIZED P Date: 1945 Primary Care Prov: NAOMY ENRIQUEZ CMRN: [id number] Room: [facility] SSN: [address] [place] [address] IMAGING SERVICES Ordering Prov: N/A Accession Number: [id number] Interpretation EXAM: PORTABLE AP CHEST, 12/30/2008 INDICATION: Shortness of breath. Trauma. FINDINGS: There is no consolidating infiltrate, pneumothorax or pleural fluid. The heart and mediastinum are within normal limits for portable AP technique. IMPRESSION: Normal portable AP chest. . Dictated by: DEAN KEVIN 12/30/2008 19:16 Electronically signed by: DEAN KEVIN 12/30/2008 19:32 Transcribed: 12/30/2008 19:31 SJ Procedure Note Dean Kevin 12/30/2008 [place] [address], [place] [address] Admit Date: 12/30/2008 CATHERINE HAMMER Sex: F Admit Prov: ER, AUTHORIZED P Date: 1945 Primary Care Prov: NAOMY ENRIQUEZ CMRN: [id number] Room: [facility] SSN: [address] [place] [address] IMAGING SERVICES Ordering Prov: N/A Interpretation EXAM: [...] PM CDT) INR 1.1 0.9 - 1.1 [facility] Comment: INR Therapeutic Range: Adult: 2.0 - 3.0 for pulmonary embolism or prophylaxis against venous thrombosis or systemic embolization. 2.0 - 3.0 for patients with tissue heart valves. 2.5 - 3.5 for patients with mechanical heart valves or post MN. Pediatric (12 years and under): 1.5 - 3.0 Although the target range in children is not well established, INR values of 1.5 - 3.0 are recommended for most patients. Higher values have been used in children with prosthetic cardiac valves and hereditary clotting disorders. [place] (<3 days) therapeutic ranges have not been established. PROTIME 14.3 12.7 - 15.1 Seconds [facility] PTT 36.3 24.4 - 36.4 Seconds [facility] Comment: PTT Therapeutic Range: Heparin Level PTT (seconds) <0.10 units/mL <53 0.10 - 0.30 units/mL 53 - 67 0.30 - 0.70 units/mL* 67 - 95* 0.70 - 1.00 units/mL 95 - 116 *corresponds to therapeutic range for unfractionated heparin Blood specimen (specimen) 12/30/2008 6:47 PM CDT 12/30/2008 7:45 PM CDT us Xiomara Fitch MD HEMATOLOGY ORDERABLES Edited [facility] CLIA# [id number] [address] [place], [place] [address] * (ABNORMAL) COMPREHENSIVE METABOLIC PANEL (12/30/2008 6:47 PM CDT) [facility] POTASSIUM 3.8 3.5 - 4.9 mmol/L [facility] GLUCOSE 106(H) 65 - 99 mg/dL [facility] AST 20 12 - 32 U/L [facility] BUN 13 6 - 20 mg/dL [facility] CALCIUM 9.3 8.6 - 10.2 mg/dL [facility] CHLORIDE 101 96 - 108 mmol/L [facility] ALBUMIN 4.4 3.4 - 4.8 g/dL [facility] CREATININE 0.76 0.51 - 0.95 mg/dL [facility] SODIUM 135 135 - 145 mmol/L [facility] ALT 18 0 - 31 U/L [facility] ALKALINE PHOSPHATASE 83 35 - 104 U/L [facility] BILIRUBIN TOTAL 0.3 0.2 - 1.0 mg/dL [facility] CO2 23 22 - 30 mmol/L [facility] TOTAL PROTEIN 7.6 6.3 - 8.6 g/dL [facility] GFR, >60 >=60 mL/min/1. 7 sq meter [facility] GFR >60 >=60 mL/min/1. 7 sq meter [facility] Comment: Modification of Diet in Renal Disease (MDRD) study formula. Estimated GFR rate interpretative information for both Americans and non- Americans is available on the [facility] Intranet at: [email or web address] Select: Lab Policies and Procedures Select: Reference Ranges - GFR Blood specimen (specimen) 12/30/2008 6:47 PM CDT 12/30/2008 7:45 PM CDT us Xiomara Fitch MD CHEMISTRY ORDERABLES Edited [facility] CLIA# [id number] [address] [place] [address] * (ABNORMAL) CBC WITH DIFFERENTIAL (12/30/2008 6:47 PM CDT) MCV 89.3 82.0 - 99.0 fL [facility] PLATELETS 293 140 - 350 K/uL [facility] HEMOGLOBIN 14.6 11.8 - 14.8 g/dL [facility] RDW 12.8 11.5 - 14.5 % [facility] WBC 13.1(H) 4.0 - 9.8 K/uL [facility] MCH 31.1 27.2 - 32.6 pg [facility] MPV 10.3 9.3 - 12.4 fL [facility] HEMATOCRIT 41.9 35.5 - 44.0 % [facility] RDW-STDEV 41.4 37.1 - 48.7 fL [facility] RBC 4.69 3.90 - 4.90 M/uL [facility] MCHC 34.8 31.5 - 35.5 % [facility] EOSINOPHILS 0 0 - 7 % [facility] EOSINOPHIL ABSOLUTE 0.02 0.00 - 0.70 K/uL [facility] LYMPHOCYTES 8(L) 16 - 45 % [facility] LYMPHOCYTE ABSOLUTE 1.04 0.70 - 4.50 K/uL [facility] BASOPHILS 0 0 - 2 % [facility] BASOPHILS ABSOLUTE 0.03 0.00 - 0.20 K/uL [facility] MONOCYTES 5 3 - 13 % [facility] MONOCYTE ABSOLUTE 0.67 0.10 - 1.30 K/uL [facility] NEUTROPHILS 87(H) 45 - 70 % [facility] NEUTROPHIL ABSOLUTE 11.35(H) 1.90 - 7.00 K/uL [facility] Blood specimen (specimen) 12/30/2008 6:47 PM CDT 12/30/2008 7:45 PM CDT us Xiomara Fitch MD HEMATOLOGY ORDERABLES Edited [facility] CLIA# [id number] [address] [place] [address] * CT ANKLE WO CONTRAST RIGHT (12/30/2008 6:46 PM CDT) Anatomical Region Laterality Modality Ankle / Foot Other 12/30/2008 6:46 PM CDT Narrative 12/30/2008 7:35 PM CDT [facility] [address] [place], [place] [address] Admit Date: 12/30/2008 CATHERINE HAMMER Sex: F Admit Prov: ER, AUTHORIZED P Date: 1945 Primary Care Prov: NAOMY ENRIQUEZ CMRN: [id number] Room: [facility] SSN: [id number] IMAGING SERVICES Ordering Prov: N/A Accession Number: [id number] Interpretation EXAM: CT RIGHT ANKLE 12/30/2008 INDICATION: [...] SJ Procedure Note Dean Kevin - 12/30/2008 [facility] [address] [place], [place] [address] Admit Date: 12/30/2008 CATHERINE HAMMER Sex: F Admit Prov: FLY MATHIEU Gresham Date: 1945 Primary Care Prov: PAIGESYJINA NAOMY Mary CMRN: [id number] Room: [facility] SSN: [address] [place] [address] IMAGING SERVICES Ordering Prov: N/A Interpretation EXAM: [...] the fibula with posterior displacement of just [id number]%. There is a main comminuted fracture fragment [...] on filedocumented in this encounter Care Teams Pallet Sorter Relationship Specialty Start Date End Date Naomy Enriquez MD PCP - General 01/03/09 documented as of this encounter
== END 2025-03-21 13:48 | disposition home or self-care (01) ==
LOC: ANHFOHIMG 13:48
PROVIDERS: PCP Family Medicine; Visit Provider Family Medicine
DX: Z12.31 Encounter for screening mammogram for malignant neoplasm of breast (principal); M85.88 Other specified disorders of bone density and structure, other site; Z78.0 Asymptomatic menopausal state; Z13.820 Encounter for screening for osteoporosis
CPT/HCPCS: 77063; 77067; 77080